=== PATIENT | male | born 1935 | race Caucasian/White ===

== ENCOUNTER 2016-05-17 17:39 | Inpatient (IN) | payer OTHER, MEDICARE ==
[~2016-05-17] VITALS: Ht 167.6 cm; Wt 64.8 kg
[~2016-05-17 17:39] MED LIST: ATOR20TA PO; PRIL20CA PO; TAB-TAB; TRIA1CAP OR
[2016-05-17 17:41] VITALS: BP 142/81; PULSE 85; RESP 18; TEMP 97.6; O2SAT 100
[2016-05-17] MEDS ORDERED: SODIUM CHLORIDE 0.9% FLUSH 5 ML FLUSH IVF PRN (18:00)
--- NOTE | 2016-05-17 18:15 | PD ---
HPI . Weakness and confusion Chief Complaint: General Weakness Time Seen by Provider: 17:55 Travel History International Travel<30 days: No Contact w/Intl Traveler<30days: No Traveled to known affect area: No History of Present Illness HPI History is provided by the patient's glthyeo-od-loh. The duhtbyn-nd-arv reports that both the patient and his are confused. The wkwgvwc-iy-pok has moved here to help take care of them. The jspzalh-ss-rkh states that the patient has a history of liver cancer and is undergoing experimental treatment in [place]. The patient has suffered increasing weakness and confusion over the last 3 or 4 days. There has been no reported fever. No known vomiting or diarrhea. No difficulty breathing. PFSH Past Medical History Cancer: No High Cholesterol: Yes Diabetes: No Endocrine: No Hiatal Hernia: No Hypertension: Yes Immune Disorder: No Musculoskeletal: No Neurologic: No Psychiatric: No Reproductive: No Respiratory: No Immunizations Current: Yes (FLU SHOT) Thyroid Disease: No Past Surgical History Abdominal Surgery: No AICD: No Cardiac Surgery: No Ear Surgery: No Endocrine Surgery: No Eye Surgery: Yes (BILATERAL CATARACTS AND IMPLANTS) Genitourinary Surgery: No Joint Replacement: No Oral Surgery: No Pacemaker: No Thoracic Surgery: No Social History Alcohol Use: Yes (2 DRINKS A DAY) Tobacco Use: No Substance Use: No Allergies-Medications (Allergen,Severity, Reaction): Coded Allergies: No Known Allergies (Verified , 03/18/14) Reported Meds & Prescriptions Reported Meds & Active Scripts Active Reported Atorvastatin 20 mg tab (Atorvastatin Calcium) 20 Mg Tab 20 Mg PO HS Triamterene/Hydrochloroth (Triamterene & Hydrochlorothiaz) 1 Cap Cap 1 Cap OR DAILY Prilosec 20 mg (Omeprazole) 20 Mg Capcr 20 Mg PO DAILY Multivitamin (Multivitamins) 1 Tab Tab Review of Systems ROS Limitations: Altered Mental Status Except as stated in HPI: all other systems reviewed are Neg General / Constitutional: No: Fever, Chills HENT: No: Headaches Cardiovascular: No: Chest Pain or Discomfort Respiratory: No: Shortness of Breath Gastrointestinal: No: Nausea, Vomiting, Diarrhea Neurologic: Positive: Weakness, Change in Mentation, No: Focal Abnormalities Physical Exam Narrative GENERAL: This is a thin, chronically ill-appearing man who is slow to respond to questions. SKIN: Warm and dry. The skin of the abdominal wall sags. HEAD: Atraumatic. Normocephalic. EYES: Pupils equal and round. He may have a little bit of scleral icterus. It is not very pronounced. ENT: No nasal bleeding or discharge. Mucous membranes pink and moist. NECK: Trachea midline. Neck is supple. CARDIOVASCULAR: Regular rate and rhythm. He is having frequent PACs and PVCs. RESPIRATORY: No accessory muscle use. Lungs sounded clear. GASTROINTESTINAL: Abdomen soft, non-tender, nondistended. Liver is markedly enlarged. It is palpable at least 4 fingerbreadths below the costal margin. The enlarged liver can actually be seen on inspection of his abdomen. MUSCULOSKELETAL: No obvious deformities. No edema. NEUROLOGICAL: Awake and alert. No obvious cranial nerve deficits. Motor grossly within normal limits. Speech is slowed. PSYCHIATRIC: Difficult to evaluate. Data Data Last Documented VS Vital Signs Date Time Temp Pulse Resp B/P Pulse Ox O2 Delivery O2 Flow Rate FiO2 05/17/16 19:26 77 20 164/81 100 Room Air 05/17/16 17:41 97.6 Orders Complete Blood Count With Diff (05/17/16 17:55) Comprehensive Metabolic Panel (05/17/16 17:55) Urinalysis - C+S If Indicated (05/17/16 17:55) Iv Access Insert/Monitor (05/17/16 17:55) Ecg Monitoring (05/17/16 17:55) Oximetry (05/17/16 17:55) Sodium Chloride 0.9% Flush (Ns Flush) (05/17/16 18:00) Cath For Specimen (05/17/16 17:55) Ammonia (05/17/16 17:58) Ct Brain W/O Iv Contrast(Rout) (05/17/16 18:16) Urinary Catheter Management SENG.Q8H (05/17/16 18:49) Sodium Chlor 0.9% 1000 Ml Inj (Ns 1000 M (05/17/16 19:30) Labs Laboratory Tests Test 05/17/16 05/17/16 18:00 19:05 White Blood Count 10.3 TH/MM3 Red Blood Count 5.24 MIL/MM3 Hemoglobin 15.7 GM/DL Hematocrit 48.5 % Mean Corpuscular Volume 92.5 FL Mean Corpuscular Hemoglobin 30.0 PG Mean Corpuscular Hemoglobin 32.4 % Concent Red Cell Distribution Width 14.3 % Platelet Count 130 TH/MM3 Mean Platelet Volume 11.7 FL Neutrophils (%) (Auto) % Lymphocytes (%) (Auto) % Monocytes (%) (Auto) % Eosinophils (%) (Auto) % Basophils (%) (Auto) % Neutrophils # (Auto) TH/MM3 Lymphocytes # (Auto) TH/MM3 Monocytes # (Auto) TH/MM3 Eosinophils # (Auto) TH/MM3 Basophils # (Auto) TH/MM3 CBC Comment AUTO DIFF Differential Total Cells 100 Counted Neutrophils % (Manual) 90 % Lymphocytes % 7 % Monocytes % 3 % Neutrophils # (Manual) 9.3 TH/MM3 Differential Comment FINAL DIFF MANUAL Platelet Estimate LOW Platelet Morphology Comment NORMAL Red Cell Morphology Comment NORMAL Sodium Level 142 MEQ/L Potassium Level 4.0 MEQ/L Chloride Level 103 MEQ/L Carbon Dioxide Level 28.0 MEQ/L Anion Gap 11 MEQ/L Blood Urea Nitrogen 37 MG/DL Creatinine 1.30 MG/DL Estimat Glomerular Filtration 53 ML/MIN Rate Random Glucose 90 MG/DL Calcium Level 12.6 MG/DL Protein Corrected Calcium 12.2 MG/DL Total Bilirubin 2.3 MG/DL Aspartate Amino Transf 181 U/L (AST/SGOT) Alanine Aminotransferase 49 U/L (ALT/SGPT) Alkaline Phosphatase 222 U/L Ammonia 26 MCMOL/L Total Protein 7.7 GM/DL Albumin 3.5 GM/DL Urine Collection Type CATH Urine Color PATRICK Urine Turbidity CLEAR Urine pH 5.5 Urine Specific [place] 1.027 Urine Protein TRACE mg/dL Urine Glucose (UA) NEG mg/dL Urine Ketones TRACE mg/dL Urine Occult Blood NEG Urine Nitrite NEG Urine Bilirubin MOD Urine Leukocyte Esterase NEG Urine WBC 0-2 /hpf Urine Squamous Epithelial 0-5 /hpf Cells Urine Amorphous Sediment LARGE Urine Hyaline Casts 15-19 /lpf Urine Fine Granular Casts 3-5 /lpf Urine Mucus MOD /lpf Microscopic Urinalysis Comment CATH-CULT NOT IND MDM Medical Decision Making Medical Screen Exam Complete: Yes Emergency Medical Condition: Yes Medical Record Reviewed: Yes (past medical history includes hypertension, hyperlipidemia, diastolic congestive heart failure, previous ITP and his current problems with his liver.) Interpretation(s) EKG shows an underlying sinus rhythm. He has multiple PVCs and PACs. He also has some artifact. Differential Diagnosis Differential diagnosis of altered mental status includes but is not limited to infection, electrolyte abnormality, neurological event, intoxication Narrative Course Patient is brought in by his maghfck-ai-qec for evaluation of increasing confusion. History is liver cancer. Last Impressions Head CT 05/17/161815 Signed Impressions: Service Date/Time: Tuesday, May 17, 2016 18:53 - CONCLUSION: Cerebral atrophy without acute intracranial abnormality. Giovanny Lima MD CBC & BMP Diagram 05/17/16 18:00 Calcium is 12.6. Total bilirubin is 2.3, AST 181, ALT 49, alkaline phosphatase 222. Ammonia is 26. Last Impressions Head CT 05/17/161815 Signed Impressions: Service Date/Time: Tuesday, May 17, 2016 18:53 - CONCLUSION: Cerebral atrophy without acute intracranial abnormality. Giovanny Lima MD UA is negative for infection. He does have bilirubin in his urine. Patient remains very confused. He was trying to crawl out of the bed. Physician Communication Physician Communication Dr. Adames will admit. Diagnosis Primary Impression: Confusion Additional Impressions: Weakness Acute prerenal azotemia Hypercalcemia Admitting Information Admitting Physician Requests: Observation Condition: Stable Alexandra Benito MD May 17, 2016 18:15
[2016-05-17 18:25] LABS: HEMATOCRIT 48.5 % (39.0-51.0); MEAN CELL VOLUME 92.5 FL (80.0-100.0); MEAN CORPUSCULAR HGB CONC 32.4 % (32.0-36.0); PLATELET COUNT 130 TH/MM3 (150-450); RED BLOOD COUNT 5.24 MIL/MM3 (4.50-5.90); RED CELL DISTRIBUTION WIDTH 14.3 % (11.6-17.2); WHITE BLOOD COUNT 10.3 TH/MM3 (4.0-11.0)
[2016-05-17 18:26] LABS: HEMO FLAGS AUTO DIFF
[2016-05-17 18:41] LABS: TOTAL BILIRUBIN ADULT 2.3 MG/DL (0.2-1.0)
[2016-05-17 18:56] LABS: CALCIUM-PROTEIN CORRECTED 12.2 MG/DL (8.5-10.1)
[2016-05-17 19:08] LABS: NEUTROPHIL # MANUAL DIFF 9.3 TH/MM3 (1.8-7.7); POLYS (SEG NEUTROPHILS) 90 % (16-70); WBC DIFF SAMPLE 100
[2016-05-17 19:09] LABS: PLATELET ESTIMATE SMEAR LOW (NORMAL); PLATELET MORPHOLOGY NORMAL (NORMAL); SCAN/DIFF FINAL DIFF MANUAL
--- NOTE | 2016-05-17 19:09 | RADHPO ---
EXAM DATE/TIME: 05/17/2016 18:53 [facility] COMPARISON: No previous studies available for comparison. INDICATIONS : Altered mental status. RADIATION DOSE: 62.63 CTDIvol (mGy) MEDICAL HISTORY : Hypertension. SURGICAL HISTORY : None. ENCOUNTER: Initial ACUITY: 1 day PAIN SCALE: 4/10 LOCATION: cranial TECHNIQUE: Multiple contiguous axial images were obtained of the head. Using automated exposure control and adj ustment of the mA and/or kV according to patient size, radiation dose was kept as low as reasonably a chievable to obtain optimal diagnostic quality images. FINDINGS: There is marked central and cortical atrophy with dilatation of ventricular and sulcal spaces. Minima l areas low-attenuation in the periventricular white matter. There is no parenchymal hemorrhage, acu te infarction or mass lesion identified. There are no extra-axial fluid collections appreciated. Th e posterior fossa is unremarkable with midline fourth ventricle. The portion of the orbits and paran rosmery sinuses visualized are unremarkable. CONCLUSION: Cerebral atrophy without acute intracranial abnormality. Giovanny Lima MD on May 17, 2016 at 19:07 Board Certified Radiologist. This report was verified electronically.
[2016-05-17 19:26] VITALS: BP 164/81; PULSE 77; RESP 20; O2SAT 100
[2016-05-17] MEDS ORDERED: SODIUM CHLOR 0.9% 1000 ML INJ 1,000 ML IV ONE (19:30)
[2016-05-17 19:46] LABS: BLOOD, URINE NEG (NEG); GLUCOSE,URINE NEG (NEG); KETONE, URINE TRACE mg/dL (NEG); NITRITE,URINE NEG (NEG); PH, URINE 5.5 (5.0-8.5)
[2016-05-17 20:14] LABS: HYALINE CAST, URINE 15-19 /lpf (RARE); METHOD OF COLLECTION CATH; URINE COLOR AMBER (YELLW/STRAW)
[2016-05-17 20:15] LABS: MUCUS URINE MOD /lpf (OCC); SQUAMOUS EPITHELIAL CELL URINE 0-5 /hpf (0-5)
[2016-05-17 20:16] LABS: COMMENT (UR) CATH-CULT NOT IND; CULTURE IF INDICATED CATH CULTURE NOT IND; WBC, URINE 0-2 /hpf (0-5)
[2016-05-17] MEDS: SODIUM CHLOR 0.9% 1000 ML INJ 1,000 ML IV SCH (20:31)
[2016-05-17] MEDS ORDERED: SODIUM CHLORIDE 0.9% FLUSH 5 ML FLUSH FLUSH PRN (20:45)
[2016-05-17] MEDS ORDERED: BISACODYL 10 MG SUPP PR PRN (20:45)
[2016-05-17] MEDS ORDERED: ONDANSETRON HCL 4 MG/2 ML VIAL IVP PRN (20:45)
[2016-05-17] MEDS ORDERED: ACETAMINOPHEN 325 MG TAB PO PRN (20:45)
[2016-05-17] MEDS: SODIUM CHLORIDE 0.9% FLUSH 5 ML FLUSH FLUSH SCH (21:00)
[2016-05-17 21:27] VITALS: BP 141/85
[2016-05-17 21:30] VITALS: BP 143/75; PULSE 80; RESP 18; TEMP 97.7; O2SAT 99
[2016-05-18] VITALS: BP 167/82; PULSE 69; RESP 18; TEMP 95.8; O2SAT 100
[2016-05-18] MEDS ORDERED: traMADol HCL 50 MG TAB PO PRN (01:00)
[2016-05-18] MEDS: SODIUM CHLOR 0.9% 1000 ML INJ 1,000 ML IV SCH ×4 (03:31→23:33)
[2016-05-18 04:00] VITALS: BP 137/68; PULSE 69; RESP 18; TEMP 97.2; O2SAT 100
[2016-05-18 06:47] LABS: AUTOMATED NEUTROPHIL # 5.3 TH/MM3 (1.8-7.7); BASOPHIL % 0.1 % (0.0-2.0); EOSINOPHIL % 0.4 % (0.0-4.0); HEMATOCRIT 38.3 % (39.0-51.0); LYMPH % 5.9 % (9.0-44.0); LYMPHOCYTE # 0.4 TH/MM3 (1.0-4.8); MEAN CELL VOLUME 91.7 FL (80.0-100.0); MEAN CORPUSCULAR HEMOGLOBIN 30.7 PG (27.0-34.0); MEAN CORPUSCULAR HGB CONC 33.5 % (32.0-36.0); MONO % 8.2 % (0.0-8.0); NEUT % 85.4 % (16.0-70.0); RED BLOOD COUNT 4.18 MIL/MM3 (4.50-5.90); RED CELL DISTRIBUTION WIDTH 14.1 % (11.6-17.2); WHITE BLOOD COUNT 6.2 TH/MM3 (4.0-11.0)
[2016-05-18 06:56] LABS: CHLORIDE 107 MEQ/L (98-107); POTASSIUM 4.2 MEQ/L (3.5-5.1); SODIUM (NA) 144 MEQ/L (136-145)
[2016-05-18 06:58] LABS: HEMO FLAGS AUTO DIFF; PLATELET COUNT 73 TH/MM3 (150-450)
[2016-05-18 07:12] LABS: ALKALINE PHOSPHATASE 159 U/L (45-117); ALT (GPT) 38 U/L (12-78); ANION GAP 10 MEQ/L (5-15); AST (GOT) 136 U/L (15-37); BICARBONATE 27.3 MEQ/L (21.0-32.0); BLOOD UREA NITROGEN 39 MG/DL (7-18); GLOMERULAR FILTRATION RATE 72 ML/MIN (>89); TOTAL BILIRUBIN ADULT 1.7 MG/DL (0.2-1.0)
[2016-05-18 07:20] LABS: PLATELET ESTIMATE SMEAR LOW (NORMAL); PLATELET MORPHOLOGY NORMAL (NORMAL)
[2016-05-18 07:21] LABS: SCAN/DIFF AUTO DIFF CONFIRMED
[2016-05-18 08:00] VITALS: BP 154/73; PULSE 62; RESP 16; TEMP 97.3; O2SAT 99
[2016-05-18] MEDS: SODIUM CHLORIDE 0.9% FLUSH 5 ML FLUSH FLUSH SCH ×2 (08:22→21:54)
[2016-05-18 12:00] VITALS: BP 141/80; PULSE 67; RESP 19; TEMP 97.7; O2SAT 98
--- NOTE | 2016-05-18 12:26 | EKG ---
Date Performed: 05/17/2016 Time Performed: 17:56:22 PTAGE: 81 years EKG: Sinus rhythm with frequent multifocal PVCs Leftward axis Incomplete RBBB Lateral ST-T changes are nonspecific Non specific ST segment changes Compared to the previous tracing there is no significant change Abnormal ECG PREVIOUS TRACING :05/23/09 DOCTOR: Bebeto Benton Interpretating Date/Time 05/18/2016 12:25:29
--- NOTE | 2016-05-18 15:40 | HHI.HP ---
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 Patient apparently had been sleeping too much at home and family was more confused with her brought to the hospital. Here the patient has had normal vital signs and oxygenation but appears dehydrated clinically with dry mucous membranes and decreased skin turgor. He notes no nausea or vomiting but has had some abdominal discomfort which she reports has been persistent since his cancer therapy had started. He notes no diarrhea or vomiting and no constipation. Normally is very active but the family says he was not very active and also prompted his visit to the hospital. I did speak with the patient's primary care physician who updated his medical history as well as his medication list. Patient has been on a diuretic and and statin despite his chronic elevated liver functions. Apparently in the emergency room the patient is confused and trying to crawl out of bed. His ammonia level was within normal limits and his CT of the brain was unremarkable on my review. Patient has been sleeping quite a bit here however when he is aroused she is alert and orientated 2. Patient was recommended for further evaluation and treatment due to probable dehydration and metabolic encephalopathy. Review of Systems Constitutional: DENIES: Diaphoretic episodes, Fatigue, Fever, Weight gain, Weight loss, Chills, Dizziness, Change in appetite, Night Sweats Endocrine: DENIES: Heat/cold intolerance, Polydipsia, Polyuria, Polyphagia Eyes: DENIES: Blurred vision, Diplopia, Eye inflammation, Eye pain, Vision loss , Photosensitivity, Double Vision Ears, nose, mouth, throat: DENIES: Tinnitus, Hearing loss, Vertigo, Nasal discharge, Oral lesions, Throat pain, Hoarseness, Ear Pain, Running Nose, Epistaxis, Sinus Pain, Toothache, Odynophagia Respiratory: DENIES: Apneas, Cough, Snoring, Wheezing, Hemoptysis, Sputum production, Shortness of breath Cardiovascular: DENIES: Chest pain, Palpitations, Syncope, Dyspnea on Exertion , PND, Lower Extremity Edema, Orthopnea, Claudication Gastrointestinal: COMPLAINS OF: Abdominal pain, DENIES: Black stools, Bloody stools, Constipation, Diarrhea, Nausea, Vomiting, Difficulty Swallowing, Anorexia Genitourinary: DENIES: Sexual dysfunction, Urinary frequency, Urinary incontinence, Urgency, Hematuria, Dysuria, Nocturia, Penile Discharge, Testicular Pain, Testicular Swelling Musculoskeletal: DENIES: Joint pain, Muscle aches, Stiffness, Joint Swelling, Back pain, Neck pain Integumentary: DENIES: Abnormal pigmentation, Nail changes, Pruritus, Rash Hematologic/lymphatic: DENIES: Bruising, Lymphadenopathy Immunologic/allergic: DENIES: Eczema, Urticaria Neurologic: DENIES: Abnormal gait, Headache, Localized weakness, Paresthesias, Seizures, Speech Problems, Tremor, Poor Balance Psychiatric: DENIES: Anxiety, Confusion, Mood changes, Depression, Hallucinations, Agitation, Suicidal Ideation, Homicidal Ideation, Delusions Past Family Social History Past Medical History Hepatic sarcoma, hepatosplenomegaly, 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 5 daily, Prilosec 20 mg daily, Mag-Ox 400 mg every other day, Toprol 25 mg day Allergies: Coded Allergies: No Known Allergies (Verified , 03/18/14) Active Ordered Medications Reviewed in the medical record Family History Unknown to patient at this time Social History Lives with his , no tobacco or alcohol dependency issues currently although he has a history of alcohol dependency and abuse Physical Exam Vital Signs Vital Signs Date Time Temp Pulse Resp B/P Pulse Ox O2 Delivery O2 Flow Rate FiO2 05/18/16 12:00 97.7 67 19 141/80 98 05/18/16 08:00 97.3 62 16 154/73 99 05/18/16 04:00 97.2 69 18 137/68 100 05/18/16 02:24 20 05/18/16 00:00 95.8 69 18 167/82 100 05/17/16 21:30 97.7 80 18 143/75 99 05/17/16 21:27 80 20 141/85 98 05/17/16 19:26 77 20 164/81 100 Room Air 05/17/16 19:26 77 20 164/81 100 Room Air 05/17/16 19:00 20 97 05/17/16 17:50 85 16 100 05/17/16 17:41 97.6 85 18 142/81 100 Physical Exam GENERAL: This is a frail, elderly, well-developed patient, in no apparent distress. SKIN: No rashes, ecchymoses or lesions. Cool and dry. HEAD: Atraumatic. Normocephalic. No temporal or scalp tenderness. EYES: Pupils equal round and reactive. Extraocular motions intact. No scleral icterus. No injection or drainage. ENT: Nose without bleeding, purulent drainage or septal hematoma. Throat without erythema, tonsillar hypertrophy or exudate. Uvula midline. Airway patent. NECK: Trachea midline. No JVD or lymphadenopathy. Supple, nontender, no meningeal signs. CARDIOVASCULAR: Regular rate and rhythm without murmurs, gallops, or rubs. RESPIRATORY: Clear to auscultation. Breath sounds equal bilaterally. No wheezes , rales, or rhonchi. GASTROINTESTINAL: Abdomen soft, non-tender, nondistended.there is hepato- splenomegaly, but no palpable masses. No guarding. MUSCULOSKELETAL: Extremities without clubbing, cyanosis, or edema. No joint tenderness, effusion, or edema noted. No calf tenderness. Negative Homans sign bilaterally. NEUROLOGICAL: Awake and alert. Cranial nerves II through XII intact. Motor and sensory grossly within normal limits. Five out of 5 muscle strength in all muscle groups. Normal speech. Laboratory Laboratory Tests Test 05/17/16 05/17/16 05/18/16 18:00 19:05 05:45 White Blood Count 10.3 6.2 Red Blood Count 5.24 4.18 Hemoglobin 15.7 12.8 Hematocrit 48.5 38.3 Mean Corpuscular Volume 92.5 91.7 Mean Corpuscular Hemoglobin 30.0 30.7 Mean Corpuscular Hemoglobin 32.4 33.5 Concent Red Cell Distribution Width 14.3 14.1 Platelet Count 130 73 Mean Platelet Volume 11.7 12.5 Neutrophils (%) (Auto) 85.4 Lymphocytes (%) (Auto) 5.9 Monocytes (%) (Auto) 8.2 Eosinophils (%) (Auto) 0.4 Basophils (%) (Auto) 0.1 Neutrophils # (Auto) 5.3 Lymphocytes # (Auto) 0.4 Monocytes # (Auto) 0.5 Eosinophils # (Auto) 0.0 Basophils # (Auto) 0.0 CBC Comment AUTO DIFF AUTO DIFF Differential Total Cells 100 Counted Neutrophils % (Manual) 90 Lymphocytes % 7 Monocytes % 3 Neutrophils # (Manual) 9.3 Differential Comment FINAL DIFF AUTO DIFF MANUAL CONFIRMED Platelet Estimate LOW LOW Platelet Morphology Comment NORMAL NORMAL Red Cell Morphology Comment NORMAL Sodium Level 142 144 Potassium Level 4.0 4.2 Chloride Level 103 107 Carbon Dioxide Level 28.0 27.3 Anion Gap 11 10 Blood Urea Nitrogen 37 39 Creatinine 1.30 1.00 Estimat Glomerular Filtration 53 72 Rate Random Glucose 90 83 Calcium Level 12.6 11.3 Protein Corrected Calcium 12.2 Total Bilirubin 2.3 1.7 Aspartate Amino Transf 181 136 (AST/SGOT) Alanine Aminotransferase 49 38 (ALT/SGPT) Alkaline Phosphatase 222 159 Ammonia 26 Total Protein 7.7 5.6 Albumin 3.5 2.6 Urine Collection Type CATH Urine Color PATRICK Urine Turbidity CLEAR Urine pH 5.5 Urine Specific [place] 1.027 Urine Protein TRACE Urine Glucose (UA) NEG Urine Ketones TRACE Urine Occult Blood NEG Urine Nitrite NEG Urine Bilirubin MOD Urine Leukocyte Esterase NEG Urine WBC 0-2 Urine Squamous Epithelial 0-5 Cells Urine Amorphous Sediment LARGE Urine Hyaline Casts 15-19 Urine Fine Granular Casts 3-5 Urine Mucus MOD Microscopic Urinalysis Comment CATH-CULT NOT IND Result Diagram: 05/18/1645 05/18/1645 Imaging Last Impressions Head CT 05/17/161815 Signed Impressions: Service Date/Time: Tuesday, May 17, 2016 18:53 - CONCLUSION: Cerebral atrophy without acute intracranial abnormality. Giovanny Lima MD Assessment and Plan Problem List: (1) Weakness ICD Code: R53.1 Status: Acute Plan: Patient is likely dehydrated. Continue with IV hydration, hold diuretic Continue with encouraging oral intake pt/ot eval (2) Hypercalcemia ICD Code: E83.52 Status: Acute Plan: Continue IV hydration, may require Lasix however numbers do seem to be correcting themselves. We'll repeat them later today (3) LFT elevation ICD Code: R94.5 Status: Acute Plan: hold simvastatin Hx of hepatic sarcoma, treated at [place] (4) MDS (myelodysplastic syndrome) ICD Code: D46.9 Status: Acute Plan: Patient has chronic refractory anemia and thrombocytopenia (5) CKD (chronic kidney disease) stage 2, GFR 60-89 ml/min ICD Code: N18.2 Status: Acute Plan: Patient's chronic kidney disease and appears to be at baseline at this time. Continue to follow with hydration (6) Metabolic encephalopathy ICD Code: G93.41 Status: Acute Plan: likley due to dehydration will reasses after adequate hydration ct head, ammonia unremarkable Assessment and Plan Plan of care to be determined by Hospital course Code Status full code Discussed Condition With Case discussed with hernandez Rodriguez, case management, Sveta MCMAHAN and Dr. Cuello's office Wendi Boogie MD May 18, 2016 15:40
[2016-05-18] MEDS ORDERED: METOPROLOL SUCCINATE 25 MG EXTENDED RELEASE TAB PO ONE (15:45)
[2016-05-18 16:00] VITALS: BP 146/78; PULSE 71; RESP 18; TEMP 98; O2SAT 97
[2016-05-18 16:15] LABS: CHLORIDE 110 MEQ/L (98-107); POTASSIUM 4.1 MEQ/L (3.5-5.1); SODIUM (NA) 145 MEQ/L (136-145)
[2016-05-18 16:19] LABS: ANION GAP 6 MEQ/L (5-15); BICARBONATE 28.7 MEQ/L (21.0-32.0); BLOOD UREA NITROGEN 36 MG/DL (7-18)
[2016-05-18 16:22] LABS: ALT (GPT) 37 U/L (12-78); AST (GOT) 131 U/L (15-37); GLOMERULAR FILTRATION RATE 75 ML/MIN (>89)
[2016-05-18 16:23] LABS: TOTAL BILIRUBIN ADULT 1.5 MG/DL (0.2-1.0)
[2016-05-18 16:24] LABS: ALKALINE PHOSPHATASE 152 U/L (45-117)
[2016-05-18] MEDS ORDERED: MULTTAB67 PO (17:43)
[2016-05-18] MEDS ORDERED: OMEP20TA PO (17:43)
[2016-05-18] MEDS ORDERED: MAGN400T2 PO (17:44)
[2016-05-18] MEDS ORDERED: TRIA37.53 PO (17:44)
[2016-05-18] MEDS ORDERED: ATOR20TA15 PO (17:44)
[2016-05-18] MEDS: traMADol HCL 50 MG TAB PO PRN (18:45)
[2016-05-18] MEDS: MULTIVITAMIN TAB PO SCH (18:45)
[2016-05-18 20:00] VITALS: BP 110/62; PULSE 57; RESP 18; TEMP 96; O2SAT 97
[2016-05-19] VITALS: BP 129/63; PULSE 58; RESP 16; TEMP 96; O2SAT 96
[2016-05-19] MEDS: SODIUM CHLOR 0.9% 1000 ML INJ 1,000 ML IV SCH (05:59)
[2016-05-19 06:00] LABS: AUTOMATED NEUTROPHIL # 4.6 TH/MM3 (1.8-7.7); BASOPHIL % 0.4 % (0.0-2.0); EOSINOPHIL % 0.6 % (0.0-4.0); HEMATOCRIT 38.3 % (39.0-51.0); LYMPHOCYTE # 0.3 TH/MM3 (1.0-4.8); MEAN CORPUSCULAR HEMOGLOBIN 30.1 PG (27.0-34.0); MEAN CORPUSCULAR HGB CONC 32.3 % (32.0-36.0); PLATELET COUNT 76 TH/MM3 (150-450); RED BLOOD COUNT 4.12 MIL/MM3 (4.50-5.90); RED CELL DISTRIBUTION WIDTH 14.6 % (11.6-17.2); WHITE BLOOD COUNT 5.3 TH/MM3 (4.0-11.0)
[2016-05-19 06:05] LABS: CHLORIDE 112 MEQ/L (98-107); POTASSIUM 3.9 MEQ/L (3.5-5.1); SODIUM (NA) 147 MEQ/L (136-145)
[2016-05-19 06:08] LABS: HEMO FLAGS AUTO DIFF
[2016-05-19 06:13] LABS: ANION GAP 8 MEQ/L (5-15); BLOOD UREA NITROGEN 32 MG/DL (7-18)
[2016-05-19 06:16] LABS: ALT (GPT) 35 U/L (12-78); AST (GOT) 127 U/L (15-37)
[2016-05-19 06:17] LABS: GLOMERULAR FILTRATION RATE 106 ML/MIN (>89)
[2016-05-19 06:18] LABS: TOTAL BILIRUBIN ADULT 1.4 MG/DL (0.2-1.0)
[2016-05-19 06:19] LABS: ALKALINE PHOSPHATASE 152 U/L (45-117)
[2016-05-19 07:20] LABS: SCAN/DIFF AUTO DIFF CONFIRMED
[2016-05-19 08:00] VITALS: BP 142/71; PULSE 58; RESP 18; TEMP 97.5; O2SAT 95
[2016-05-19] MEDS: PANTOPRAZOLE SOD 20 MG DELAYED RELEASE TAB PO SCH (08:37)
[2016-05-19] MEDS: MULTIVITAMIN TAB PO SCH (08:37)
[2016-05-19] MEDS: METOPROLOL SUCCINATE 25 MG EXTENDED RELEASE TAB PO SCH (08:38)
[2016-05-19] MEDS: SODIUM CHLORIDE 0.9% FLUSH 5 ML FLUSH FLUSH SCH ×2 (08:38→21:46)
[2016-05-19 12:00] VITALS: BP 138/79; PULSE 62; RESP 19; TEMP 97.8; O2SAT 95
[2016-05-19] MEDS ORDERED: GADODIAMIDE PF 287 MG/ML 5 ML VIAL (for RAD MRI) IV ONE (13:22)
--- NOTE | 2016-05-19 13:22 | HHI.PR ---
Subjective Remarks Patient seen and evaluated in follow-up for encephalopathy. He is rehydrated, lunch lites are improved. Family at the bedside today. Discharge planning discussed with family. MRI pending Objective Vitals Vital Signs Date Time Temp Pulse Resp B/P Pulse Ox O2 Delivery O2 Flow Rate FiO2 05/19/16 08:00 97.5 58 18 142/71 95 05/19/16 00:00 96.0 58 16 129/63 96 05/18/16 20:00 96.0 57 18 110/62 97 05/18/16 16:00 98.0 71 18 146/78 97 I/O 05/18/16 05/18/16 05/18/16 05/19/16 05/19/16 05/19/16 07:00 15:00 23:00 07:00 15:00 23:00 Intake Total 1050 ml 3083 ml 400 ml 240 ml Output Total 200 ml 880 ml 450 ml Balance 850 ml 2203 ml -50 ml 240 ml Intake Oral 420 ml 400 ml 240 ml IV Total 1050 ml 2663 ml Output Urine Total 200 ml 880 ml 450 ml # Bowel Movements 0 0 Result Diagram: 05/19/16 0520 05/19/16 0520 Imaging Last Impressions Head CT 05/17/166 Signed Impressions: Service Date/Time: Tuesday, May 17, 2016 18:53 - CONCLUSION: Cerebral atrophy without acute intracranial abnormality. Giovanny Lima MD Objective Remarks GENERAL: This is a well-nourished, well-developed patient, in no apparent distress. CARDIOVASCULAR: Regular rate and rhythm without murmurs, gallops, or rubs. RESPIRATORY: Clear to auscultation. Breath sounds equal bilaterally. No wheezes , rales, or rhonchi. GASTROINTESTINAL: Abdomen soft, non-tender, nondistended. Normal active bowel sounds MUSCULOSKELETAL: Extremities without clubbing, cyanosis, or edema. NEURO: Alert & Oriented to person, weak confused A/P Problem List: (1) Weakness ICD Code: R53.1 Status: Acute Plan: better hydrated Continue with po intake, hold diuretic pt/ot eval (2) Hypercalcemia ICD Code: E83.52 Status: Acute Plan: corrected (3) LFT elevation ICD Code: R94.5 Status: Acute Plan: lft's better Hx of hepatic sarcoma, treated at [facility] (4) MDS (myelodysplastic syndrome) ICD Code: D46.9 Status: Acute Plan: Patient has chronic refractory anemia and thrombocytopenia (5) CKD (chronic kidney disease) stage 2, GFR 60-89 ml/min ICD Code: N18.2 Status: Acute Plan: Patient's chronic kidney disease and appears to be at baseline at this time. Continue to follow with hydration (6) Metabolic encephalopathy ICD Code: G93.41 Status: Acute Plan: likely due to dehydration better but still not at baseline MRI pending ct head, ammonia nl eeg Discharge Planning [facility] Wendi Singh MD May 19, 2016 13:22
--- NOTE | 2016-05-19 13:35 | RADHPO ---
EXAM DATE/TIME: 05/19/2016 12:41 [facility] COMPARISON: MRI BRAIN W & W/O CONTRAST, May 24, 2009, 7:51. INDICATIONS : Altered mental status. CONTRAST: 13 cc Omniscan (gadodiamide) IV MEDICAL HISTORY : Hypertension. Hypercholesterolemia. Liver ca with mets. SURGICAL HISTORY : Liver bx. ENCOUNTER: Initial ACUITY: 2 day PAIN SCORE: 2/10 LOCATION: head TECHNIQUE: Multiplanar, multisequence MRI of the brain was performed both prior to and following the administrat ion of paramagnetic contrast. FINDINGS: CEREBRUM: The ventricles are normal for age. No evidence of midline shift, mass lesion, hemorrhage or acute in farction. No extraaxial fluid collections are seen. The pituitary gland and suprasellar cistern are normal in configuration. WHITE MATTER: No significant signal abnormalities are seen in the white matter. POSTERIOR FOSSA: There is a 1.9 x 1.7 cm schwannoma both intra-and extra canalicular. It is peripheral enhancing with some central areas of non-enhancement. It is larger than in 2010 . The cerebellum and brainstem are intact. The 4th ventricle is midline. The cerebellar tonsils are normal in position. DIFFUSION IMAGING: No focal areas of restricted diffusion are seen. No evidence of acute infarction. EXTRACRANIAL: The visualized portions of the orbits and paranasal sinuses are unremarkable. POST-CONTRAST: No abnormal areas of parenchymal or dural enhancement. No evidence of blood-brain barrier breakdown. CONCLUSION: There is a 1.9 x 1.7 cm schwannoma both intra-and extra canalicular. It is peripheral enhancing with some central areas of non-enhancement. It is larger than in 2010. Bruno James MD on May 19, 2016 at 13:31 Board Certified Radiologist. This report was verified electronically.
[2016-05-19 16:00] VITALS: BP 128/80; PULSE 71; RESP 18; TEMP 97.7; O2SAT 97
[2016-05-19] MEDS: traMADol HCL 50 MG TAB PO PRN (17:28)
[2016-05-19 20:00] VITALS: BP 146/63; PULSE 59; RESP 20; TEMP 98.8; O2SAT 99
[2016-05-20] VITALS: BP 150/69; PULSE 58; RESP 20; TEMP 97.9; O2SAT 98
[2016-05-20 05:54] LABS: CHLORIDE 112 MEQ/L (98-107); POTASSIUM 3.7 MEQ/L (3.5-5.1); SODIUM (NA) 147 MEQ/L (136-145)
[2016-05-20 05:59] LABS: ANION GAP 9 MEQ/L (5-15); BICARBONATE 26.5 MEQ/L (21.0-32.0); BLOOD UREA NITROGEN 30 MG/DL (7-18)
[2016-05-20 06:02] LABS: ALT (GPT) 40 U/L (12-78); AST (GOT) 132 U/L (15-37); GLOMERULAR FILTRATION RATE 89 ML/MIN (>89)
[2016-05-20 06:04] LABS: TOTAL BILIRUBIN ADULT 1.4 MG/DL (0.2-1.0)
[2016-05-20 06:05] LABS: ALKALINE PHOSPHATASE 161 U/L (45-117)
[2016-05-20 08:00] VITALS: BP 135/62; PULSE 62; RESP 18; TEMP 97.2; O2SAT 95
[2016-05-20] MEDS ORDERED: TRIAMTERENE/HCTZ 37.5 MG/25 MG CAP PO SCH (09:00)
[2016-05-20] MEDS: PANTOPRAZOLE SOD 20 MG DELAYED RELEASE TAB PO SCH (09:54)
[2016-05-20] MEDS: MULTIVITAMIN TAB PO SCH (09:54)
[2016-05-20] MEDS: METOPROLOL SUCCINATE 25 MG EXTENDED RELEASE TAB PO SCH (09:54)
[2016-05-20] MEDS: SODIUM CHLORIDE 0.9% FLUSH 5 ML FLUSH FLUSH SCH ×2 (09:58→22:52)
[2016-05-20] MEDS: DEXT 5%-NACL 0.45% 1000 ML INJ 1,000 ML IV SCH ×2 (10:01→22:53)
[2016-05-20 12:00] VITALS: BP 130/61; PULSE 55; RESP 18; TEMP 97.4; O2SAT 97
[2016-05-20] MEDS ORDERED: FUROSEMIDE 40 MG/4 ML VIAL IV PUSH ONE (13:00)
--- NOTE | 2016-05-20 13:02 | HHI.PR ---
Subjective Remarks Patient seen today in follow-up for what appears to be a sudden onset of metabolic encephalopathy in a patient who is normally highly functioning without history of dementia. Still quite slow of thought and use. Calcium levels increased today. Patient appears adequately hydrated. Awaiting EEG and neuro consult Objective Vitals Vital Signs Date Time Temp Pulse Resp B/P Pulse Ox O2 Delivery O2 Flow Rate FiO2 05/20/16 12:00 97.4 55 18 130/61 97 05/20/16 08:00 97.2 62 18 135/62 95 05/20/16 00:00 97.9 58 20 150/69 98 05/19/16 20:00 98.8 59 20 146/63 99 05/19/16 16:00 97.7 71 18 128/80 97 I/O 05/19/16 05/19/16 05/19/16 05/20/16 05/20/16 05/20/16 07:00 15:00 23:00 07:00 15:00 23:00 Intake Total 400 ml 240 ml 60 ml 60 ml Output Total 450 ml 400 ml 375 ml 150 ml Balance -50 ml -160 ml -315 ml -90 ml Intake Oral 400 ml 240 ml 60 ml 60 ml IV Total 0 ml 0 ml Output Urine Total 450 ml 400 ml 375 ml 150 ml # Bowel Movements 0 0 0 Result Diagram: 05/19/16 0520 05/20/16 0523 Objective Remarks GENERAL: This is a well-nourished, well-developed patient, in no apparent distress. CARDIOVASCULAR: Regular rate and rhythm without murmurs, gallops, or rubs. RESPIRATORY: Clear to auscultation. Breath sounds equal bilaterally. No wheezes , rales, or rhonchi. GASTROINTESTINAL: Abdomen soft, non-tender, nondistended. Normal active bowel sounds MUSCULOSKELETAL: Extremities without clubbing, cyanosis, or edema. NEURO: Alert & Oriented to person, weak confused A/P Problem List: (1) Weakness ICD Code: R53.1 Status: Acute Plan: better hydrated Continue with po intake, hold diuretic pt/ot eval appreciated (2) Hypercalcemia ICD Code: E83.52 Status: Acute Plan: PTH pending add lasix d/c hctz (3) LFT elevation ICD Code: R94.5 Status: Acute Plan: lft's better Hx of hepatic sarcoma, treated at [facility] (4) MDS (myelodysplastic syndrome) ICD Code: D46.9 Status: Acute Plan: Patient has chronic refractory anemia and thrombocytopenia stable without signs of bleeding (5) CKD (chronic kidney disease) stage 2, GFR 60-89 ml/min ICD Code: N18.2 Status: Acute Plan: Patient's chronic kidney disease and appears to be at baseline at this time. resolved with hydration (6) Metabolic encephalopathy ICD Code: G93.41 Status: Acute Plan: likely due to dehydration better but still not at baseline MRI shows ols schwannoma ammonia nl eeg pending Discharge Planning snf arranged for /dc when stable Wendi Boogie MD May 20, 2016 13:02
[2016-05-20 16:00] VITALS: BP 120/80; PULSE 62; RESP 18; TEMP 98.2; O2SAT 96
[2016-05-20 16:52] LABS: AMPHETAMINE, URINE NEG (NEG)
[2016-05-20 16:53] LABS: BARBITURATES, URINE NEG (NEG)
[2016-05-20 16:57] LABS: COCAINE, URINE NEG (NEG)
--- NOTE | 2016-05-20 17:18 | MG ---
cc: MARISOL DE ANDA M.D. Lab No: [id number] Date: 05/20/16 Age: Sex: M Race: TECHNIQUE 17 channel EEG. DESCRIPTION The background rhythm initially shows mild slowing in the theta range at roughly 6 Hz. Some muscle artifact is identified. The amplitude is roughly 20 microvolts. The patient described as being drowsy. There are sleep spindles present. No epileptiform features are seen. No lateralizing features are seen. Hyperventilation was not done. Photic results in a poor driving response. INTERPRETATION This appears to be a normal drowsy and sleep EEG. MD PREM Vargas/ANETTE /4:49 PM /5:14 PM
[2016-05-20 20:01] VITALS: BP 133/70; PULSE 56; RESP 21; TEMP 98.6; O2SAT 98
[2016-05-21] VITALS: BP 122/74; PULSE 57; RESP 20; TEMP 97.2; O2SAT 100
[2016-05-21 06:17] LABS: CHLORIDE 106 MEQ/L (98-107); POTASSIUM 3.4 MEQ/L (3.5-5.1); SODIUM (NA) 143 MEQ/L (136-145)
[2016-05-21 06:21] LABS: ANION GAP 8 MEQ/L (5-15); BLOOD UREA NITROGEN 28 MG/DL (7-18)
[2016-05-21 06:24] LABS: ALT (GPT) 43 U/L (12-78); AST (GOT) 136 U/L (15-37); GLOMERULAR FILTRATION RATE 81 ML/MIN (>89)
[2016-05-21 06:25] LABS: TOTAL BILIRUBIN ADULT 1.5 MG/DL (0.2-1.0)
[2016-05-21 06:27] LABS: ALKALINE PHOSPHATASE 176 U/L (45-117)
[2016-05-21 08:00] VITALS: BP 116/50; PULSE 69; RESP 20; TEMP 97.6; O2SAT 95
--- NOTE | 2016-05-21 08:50 | PD.CONS ---
History of Present Illness Service Neurology Consult Requested By medical Reason for Consult confusion Primary Care Physician Deepak Cuello MD History of Present Illness 81-year-old gentleman with a history of hepatic sarcoma who has been undergoing treatment at the [facility] for his malignancy. pt is poor historian. apparently has not been doing as well since receiving therapy at [facility]. he denies any duque/neck pain/focal weakness. states he will use a cane to walk around with. mri brain -no acute lesion eeg- nml no fever. wbc normal count. nh3 nml. 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 5 daily, Prilosec 20 mg daily, Mag-Ox 400 mg every other day, Toprol 25 mg day Allergies: Coded Allergies: No Known Allergies (Verified , 03/18/14) Active Ordered Medications Reviewed in the medical record Family History Unknown to patient at this time Social History Lives with his , no tobacco or alcohol use at present Review of Systems All other ROS: ROS reviewed as documented in chart Past Family Social History Allergies: Coded Allergies: No Known Allergies (Verified , 03/18/14) Active Ordered Medications Current Medications Medications (Trade) Dose Ordered Sig/Mitzy Route Start Time Stop Time Status Last Admin (NS Flush) 2 ml UNSCH PRN FLUSH 05/17/16 20:45 (NS Flush) 2 ml BID FLUSH 05/17/16 21:00 05/20/16 22:52 (Zofran Inj) 4 mg Q6H PRN IVP 05/17/16 20:45 (Dulcolax Supp) 10 mg DAILY PRN VT 05/17/16 20:45 (Tylenol) 650 mg Q6H PRN PO 05/17/16 20:45 (Ultram) 50 mg Q4H PRN PO 05/18/16 01:00 05/19/16 17:28 (Ultram) 100 mg Q4H PRN PO 05/18/16 01:00 05/18/16 00:57 (Toprol Xl) 25 mg DAILY PO 05/19/16 09:00 05/20/16 09:54 (Theragran) 1 tab DAILY PO 05/18/16 19:00 05/20/16 09:54 Pantoprazole Sodium 20 mg 20 mg DAILY PO 05/19/16 09:00 05/20/16 09:54 (D5W-03/23 NS 1000 ml Inj) 1,000 ml @ 84 mls/hr [id number] IV 05/20/16 09:00 05/20/16 22:53 (Pneumovax-23 Inj) 25 mcg ONCE ONCE IM 05/21/16 10:00 05/21/16 10:01 Exam I&O / VS 05/20/16 05/20/16 05/21/16 14:59 22:59 06:59 Intake Total 452 ml 388 ml 726 ml Output Total 1750 ml 800 ml Balance -1298 ml -412 ml 726 ml Intake Oral 450 ml 240 ml 240 ml IV Total 2 ml 148 ml 486 ml Output Urine Total 1750 ml 800 ml # Voids 2 # Bowel Movements 0 2 0 Vital Signs Date Time Temp Pulse Resp B/P Pulse Ox O2 Delivery O2 Flow Rate FiO2 05/21/16 08:00 97.6 69 20 116/50 95 05/21/16 00:00 97.2 57 20 122/74 100 05/20/16 20:01 98.6 56 21 133/70 98 05/20/16 16:00 98.2 62 18 120/80 96 05/20/16 12:00 97.4 55 18 130/61 97 General: No acute distress Neurologic: Alert Psychiatric: Cooperative Exam Comments alert, slow to answer and speak, bradyphrenic, pcpc: [place], able to name objects. follows. eomi, vff grossly full. ou 3mm sluggish, os- surgical cataract extraction changes, face sym, taylor to gravity but appears to have generalized weakness, msr trace, no clonus, planter flexor response, Review/Management Diagnosis/Plan: (1) Metabolic encephalopathy Plan: possibly side effect to onc medication/tx vs hypercalcemia and reduced appetite with secondary dehydration no significant lab or imaging abnormalities noted may be developing concomitant dementia. also, with mild parkinsonism on exam recs will need f/u with [facility] to further evaluate hypercalcemia w/u per medical we can check csf studies to complete w/u but suspect low yield p.t. careful using tramadol- can cause sz's probable rehab serial outpatient neuro exams (2) LFT elevation (3) Acute prerenal azotemia (4) Hypercalcemia Seng Bustamante MD May 21, 2016 08:50
[2016-05-21] MEDS: METOPROLOL SUCCINATE 25 MG EXTENDED RELEASE TAB PO SCH (09:00)
[2016-05-21] MEDS: SODIUM CHLORIDE 0.9% FLUSH 5 ML FLUSH FLUSH SCH ×2 (09:00→20:36)
[2016-05-21] MEDS: DEXT 5%-NACL 0.45% 1000 ML INJ 1,000 ML IV SCH (09:06)
[2016-05-21] MEDS: MULTIVITAMIN TAB PO SCH (09:08)
[2016-05-21] MEDS: PANTOPRAZOLE SOD 20 MG DELAYED RELEASE TAB PO SCH (09:08)
[2016-05-21] MEDS ORDERED: PNEUMOCOCCAL POLYVALENT INJ 25 MCG/0.5 ML SYR IM ONE (10:00)
[2016-05-21 10:42] LABS: MEAN CELL VOLUME 92.6 FL (80.0-100.0); MEAN CORPUSCULAR HGB CONC 34.6 % (32.0-36.0); PLATELET COUNT 92 TH/MM3 (150-450); RED BLOOD COUNT 4.21 MIL/MM3 (4.50-5.90); RED CELL DISTRIBUTION WIDTH 14.1 % (11.6-17.2); WHITE BLOOD COUNT 8.4 TH/MM3 (4.0-11.0)
[2016-05-21 10:44] LABS: APTT (PATIENT) 27.8 SEC (24.3-30.1); INTERNATIONAL NORMALIZED RATIO 1.4 RATIO; PROTHROMBIN TIME - PATIENT 15.4 SEC (9.8-11.6)
[2016-05-21 10:57] LABS: REVIEW FLAG FINAL
[2016-05-21] MEDS ORDERED: METO25TA6 PO (11:08)
[2016-05-21] MEDS ORDERED: NIFE1TAB85 PO (11:08)
[2016-05-21] MEDS ORDERED: ACET325T PO (11:08)
--- NOTE | 2016-05-21 11:13 | HHI.DS ---
Discharge Summary Admission Date May 19, 2016 at 11:58 Discharge Date: May 21, 2016 Admitting Diagnosis confusion, hypercalcemia, prerenal azotemia (1) Metabolic encephalopathy ICD Code: G93.41 Diagnosis: Principal (2) Weakness ICD Code: R53.1 (3) Hypercalcemia ICD Code: E83.52 (4) LFT elevation ICD Code: R94.5 (5) MDS (myelodysplastic syndrome) ICD Code: D46.9 (6) CKD (chronic kidney disease) stage 2, GFR 60-89 ml/min ICD Code: N18.2 Procedures None Brief History - From Admission Patient is an 81-year-old gentleman with a history of hepatic sarcoma who has been undergoing direct liver therapy at the [facility] for his malignancy. Patient apparently had been sleeping too much at home and family was more confused with her brought to the hospital. Here the patient has had normal vital signs and oxygenation but appears dehydrated clinically with dry mucous membranes and decreased skin turgor. He notes no nausea or vomiting but has had some abdominal discomfort which she reports has been persistent since his cancer therapy had started. He notes no diarrhea or vomiting and no constipation. Normally is very active but the family says he was not very active and also prompted his visit to the hospital. I did speak with the patient's primary care physician who updated his medical history as well as his medication list. Patient has been on a diuretic and and statin despite his chronic elevated liver functions. Apparently in the emergency room the patient is confused and trying to crawl out of bed. His ammonia level was within normal limits and his CT of the brain was unremarkable on my review. Patient has been sleeping quite a bit here however when he is aroused she is alert and orientated 2. Patient was recommended for further evaluation and treatment due to probable dehydration and metabolic encephalopathy. CBC/BMP: 05/21/16 1010 05/21/16 0528 Significant Findings Laboratory Tests Test 05/18/16 05/19/16 05/20/16 05/20/16 16:02 05:20 05:22 05:23 Chloride Level 110 MEQ/L 112 MEQ/L 112 MEQ/L (98-107) (98-107) (98-107) Blood Urea Nitrogen 36 MG/DL (7-18) 32 MG/DL (7-18) 30 MG/DL (7-18) Estimat Glomerular Filtration 75 ML/MIN (>89) Rate Calcium Level 10.6 MG/DL 10.6 MG/DL (8.5-10.1) (8.5-10.1) Total Bilirubin 1.5 MG/DL 1.4 MG/DL 1.4 MG/DL (0.2-1.0) (0.2-1.0) (0.2-1.0) Aspartate Amino Transf 131 U/L (15-37) 127 U/L (15-37) 132 U/L (15-37) (AST/SGOT) Alkaline Phosphatase 152 U/L 152 U/L 161 U/L (45-117) (45-117) (45-117) Total Protein 5.4 GM/DL 5.1 GM/DL 5.2 GM/DL (6.4-8.2) (6.4-8.2) (6.4-8.2) Albumin 2.4 GM/DL 2.3 GM/DL 2.3 GM/DL (3.4-5.0) (3.4-5.0) (3.4-5.0) Red Blood Count 4.12 MIL/MM3 (4.50-5.90) Hemoglobin 12.4 GM/DL (13.0-17.0) Hematocrit 38.3 % (39.0-51.0) Platelet Count 76 TH/MM3 (150-450) Mean Platelet Volume 13.9 FL (7.0-11.0) Neutrophils (%) (Auto) 87.0 % (16.0-70.0) Lymphocytes (%) (Auto) 5.0 % (9.0-44.0) Lymphocytes # (Auto) 0.3 TH/MM3 (1.0-4.8) Sodium Level 147 MEQ/L 147 MEQ/L (136-145) (136-145) Random Glucose 73 MG/DL (74-106) Salicylates Level LESS THAN 1.7 MG/DL (2.8-20.0) Acetaminophen Level 4.4 MCG/ML (10.0-30.0) Test 05/20/16 05/20/16 05/21/16 05/21/16 11:50 20:00 05:28 10:10 Parathyroid Hormone (Intact) LESS THAN 2.5 PG/ML (12.4-76.8) C-Reactive Protein 4.60 MG/DL (0.00-0.30) Vitamin B12 Level 1831 PG/ML (193-986) Potassium Level 3.4 MEQ/L (3.5-5.1) Blood Urea Nitrogen 28 MG/DL (7-18) Estimat Glomerular Filtration 81 ML/MIN (>89) Rate Calcium Level 10.2 MG/DL (8.5-10.1) Total Bilirubin 1.5 MG/DL (0.2-1.0) Aspartate Amino Transf 136 U/L (15-37) (AST/SGOT) Alkaline Phosphatase 176 U/L (45-117) Total Protein 5.5 GM/DL (6.4-8.2) Albumin 2.4 GM/DL (3.4-5.0) Red Blood Count 4.21 MIL/MM3 (4.50-5.90) Platelet Count 92 TH/MM3 (150-450) Mean Platelet Volume 12.7 FL (7.0-11.0) Prothrombin Time 15.4 SEC (9.8-11.6) Imaging Last Impressions Brain MRI 05/19/16 0000 Signed Impressions: Service Date/Time: Thursday, May 19, 2016 12:41 - CONCLUSION: There is a 1.9 x 1.7 cm schwannoma both intra-and extra canalicular. It is peripheral enhancing with some central areas of non-enhancement. It is larger than in 2010. Bruno James MD Head CT 05/17/166 Signed Impressions: Service Date/Time: Tuesday, May 17, 2016 18:53 - CONCLUSION: Cerebral atrophy without acute intracranial abnormality. Giovanny Lima MD PE at Discharge GENERAL: Elderly chronically ill-appearing male patient. SKIN: Warm and dry. HEAD: Normocephalic. EYES: No scleral icterus. No injection or drainage. NECK: Supple, trachea midline. No JVD or lymphadenopathy. CARDIOVASCULAR: Regular rate and rhythm without murmurs, gallops, or rubs. RESPIRATORY: Breath sounds equal bilaterally. No accessory muscle use. GASTROINTESTINAL: Abdomen soft, non-tender, nondistended. EXTREMITIES: No cyanosis, or edema. NEUROLOGICAL: Awake, alert, and oriented to self, type of building, and CAD. Patient is able to correctly tell me that it is 2017 when he is given multiple choice options. He knows the certified peer specialist. Patient is generally weak but follows all commands. Face is symmetric. Speech is quiet but within normal limits. He has generalized weakness but moves all 4 extremities on command. Transfer Summary Hospital Course The patient was admitted to the hospital and treated with IV fluids for the hypercalcemia which improved. The patient does have a history of cirrhosis presumably from alcoholism but has not had an alcoholic beverage for the past 5- 6 years as per his . Ammonia level was not elevated. Brain MRI did show a 1.9 x 1.7 cm schwannoma slightly larger compared to 2010 which is a known chronic finding. EEG showed no acute epileptiform activity. The patient remained confused but mentation has been clearing somewhat. Neurology evaluated the patient and felt that he likely had an acute metabolic encephalopathy due to the hypercalcemia, and also may have some early dementia or Parkinson's disease. Tramadol was recommended to be discontinued. PTH levels were slightly low. A PTH related peptide is pending as well as vitamin D metabolites. I have discontinued his hydrochlorothiazide as this may have caused the hypercalcemia as well. The patient's has opted for him to go to [facility] nursing facility. I did discuss with her in detail the above and have recommended a repeat BMP in 2 days at the nursing facility to recheck calcium levels. We also discussed discontinuing the hydrochlorothiazide. And that she will need to have him follow-up with his primary care physician for the pending lab results as above. Pt Condition on Discharge: Stable Discharge Disposition: Discharge to SNF Discharge Time: > 30 minutes Discharge Instructions DIET: Follow Instructions for: As Tolerated, No Restrictions Activities you can perform: Regular-No Restrictions New Medications: Nifedipine ER 24 HR (Procardia XL) 30 Mg Tab 30 MG PO DAILY Blood Pressure Management #30 Ref 0 TAB Acetaminophen (Acetaminophen) 325 Mg Tab 650 MG PO Q6H PRN FEVER #60 TAB Metoprolol Succinate ER 24 HR (Metoprolol Succinate ER 24 HR) 25 Mg Tab 25 MG PO DAILY Blood Pressure Management #30 TAB Continued Medications: Atorvastatin (Atorvastatin) 20 Mg Tab 20 MG PO HS Cholesterol Management #30 Ref 0 TAB Magnesium Oxide (Magnesium Oxide) 400 Mg Tab 400 MG PO EVERY OTHER DAY Nutritional Supplement Ref 0 TAB Multiple Vitamin (Multiple Vitamin) 1 Tab 1 TAB PO DAILY Nutritional Supplement Ref 0 TAB Omeprazole (Omeprazole) 20 Mg Tab 20 MG PO DAILY #30 Ref 0 TAB Discontinued Medications: Triamterene-Hydrochlorothiazide (Triamterene-Hydrochlorothiazide) 37.5-25 Mg Cap 1 CAP PO DAILY #30 Ref 0 CAP Amy Lopez MD May 21, 2016 11:13
[2016-05-21 12:00] VITALS: BP 93/50; PULSE 54; RESP 20; TEMP 97.4; O2SAT 98
--- NOTE | 2016-05-21 13:32 | HHI.PR ---
Subjective Remarks Patient is still weak and confused. He endorses confusion. Blood pressure mildly low at noon today. Objective Vitals Vital Signs Date Time Temp Pulse Resp B/P Pulse Ox O2 Delivery O2 Flow Rate FiO2 05/21/16 12:00 97.4 54 20 93/50 98 05/21/16 08:00 97.6 69 20 116/50 95 05/21/16 00:00 97.2 57 20 122/74 100 05/20/16 20:01 98.6 56 21 133/70 98 05/20/16 16:00 98.2 62 18 120/80 96 I/O 05/20/16 05/20/16 05/20/16 05/21/16 05/21/16 05/21/16 07:00 15:00 23:00 07:00 15:00 23:00 Intake Total 60 ml 452 ml 388 ml 726 ml Output Total 150 ml 1750 ml 800 ml Balance -90 ml -1298 ml -412 ml 726 ml Intake Oral 60 ml 450 ml 240 ml 240 ml IV Total 0 ml 2 ml 148 ml 486 ml Output Urine Total 150 ml 1750 ml 800 ml # Voids 2 # Bowel Movements 0 0 2 0 Result Diagram: 05/21/16 1010 05/21/16 0528 Objective Remarks GENERAL: Elderly chronically ill-appearing male patient. SKIN: Warm and dry. HEAD: Normocephalic. EYES: No scleral icterus. No injection or drainage. NECK: Supple, trachea midline. No JVD or lymphadenopathy. CARDIOVASCULAR: Regular rate and rhythm without murmurs, gallops, or rubs. RESPIRATORY: Breath sounds equal bilaterally. No accessory muscle use. GASTROINTESTINAL: Abdomen soft, non-tender, nondistended. EXTREMITIES: No cyanosis, or edema. NEUROLOGICAL: Awake, alert, and oriented to self, type of building, and CAD. Patient is able to correctly tell me that it is 2017 when he is given multiple choice options. He knows the bowling alley refinisher. Patient is generally weak but follows all commands. Face is symmetric. Speech is quiet but within normal limits. He has generalized weakness but moves all 4 extremities on command. Procedures None A/P Problem List: (1) Metabolic encephalopathy ICD Code: G93.41 Status: Acute (2) Weakness ICD Code: R53.1 Status: Acute (3) Hypercalcemia ICD Code: E83.52 Status: Acute (4) LFT elevation ICD Code: R94.5 Status: Acute (5) MDS (myelodysplastic syndrome) ICD Code: D46.9 Status: Acute (6) CKD (chronic kidney disease) stage 2, GFR 60-89 ml/min ICD Code: N18.2 Status: Acute Assessment and Plan -Acute metabolic encephalopathy probably secondary to hypercalcemia. Possible underlying dementia with parkinsonism features. Ammonia is not elevated. B-12 level elevated. Urine drug screen was negative. EEG negative. Brain MRI negative. He is nonfocal. For lumbar puncture today as well as MRI of the cervical spine. Appreciate neurology input. Continue speech therapy cognitive therapy. -Acute hypercalcemia, likely secondary to thiazide diuretic as well as dehydration. Now resolved/improving. DC thiazide. PTH was mildly low. PTH related peptide is pending. Vitamin D metabolites are pending. -Sarcoma of the liver followed at [facility]. -AST elevation possibly secondary to the sarcoma. Stable. -Generalized weakness. Continue physical therapy. -Myelodysplastic syndrome with chronic thrombocytopenia. Monitor cell lines. 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 Currently compensated. -Hypertension. Blood pressure running low. Hold metoprolol. Repeat blood pressure now. Per nurse he is taking good by mouth intake. -Acute hypernatremia secondary to dehydration. Resolved. Hep-Lock IV. -Chronic kidney disease stage II to 3. At baseline. -DVT prophylaxis with SCDs. Discharge Planning To senior living facility in 1-2 days of lumbar punctures negative. Amy Lopez MD May 21, 2016 13:32
--- NOTE | 2016-05-21 14:36 | PD.RAD ---
Post Procedure Progress Note Pre Procedure Diagnosis: (1) Weakness Post Procedure Diagnosis: (1) Weakness Procedure Date: May 21, 2016 Supervising Radiologist: Augustine Quiroga JR Proceduralist/Assist: Mouna Gonzales RT(R), RT Lydia(R)() Anesthesia: Local Plan of Activity Patient to Unit: Nursing Unit Patient Condition: Good See PACS Report for procedural detail/treatment Spinal Procedure Lumbar Puncture L2-L3, L3-L4 Fluid Removal (CCs): 8 Fluid Description: Clear Puncture Time: 14:15 Jr. Junaid,Augustine Doyle MD May 21, 2016 14:36
[2016-05-21 15:00] LABS: GROSS BLOOD TUBE #1 TRACE (0); SUPERNATE COLOR TUBE #1 CLEAR (CLEAR)
[2016-05-21 15:01] LABS: GROSS BLOOD TUBE #2 TRACE (0); GROSS BLOOD TUBE #3 TRACE (0); GROSS BLOOD TUBE #4 TRACE (0); SUPERNATE COLOR TUBE #2 CLEAR (CLEAR); SUPERNATE COLOR TUBE #3 CLEAR (CLEAR); SUPERNATE COLOR TUBE #4 CLEAR (CLEAR); VOLUME TUBE # 4 2.5 ML
[2016-05-21 15:48] VITALS: BP 125/74; PULSE 62; RESP 20; TEMP 96.8; O2SAT 96
[2016-05-21 16:27] LABS: CSF LYMPHOCYTES 0 %; CSF NEUTROPHILS 0 %; WBC TUBE #4 0 /MM3 (0-10)
[2016-05-21 20:00] VITALS: BP 120/56; PULSE 66; RESP 20; TEMP 98.5; O2SAT 98
[2016-05-22] VITALS: BP 142/73; PULSE 75; RESP 20; TEMP 96.5; O2SAT 99
--- NOTE | 2016-05-22 07:42 | RADHPO ---
EXAM DATE/TIME: 05/21/2016 14:07 [facility] COMPARISON: No previous studies available for comparison. INDICATIONS : Patient with a history of confusion, altered mental status. MEDICAL HISTORY : Hepatic sarcoma, hepatosplenomegaly, mild dysplastic syndrome with refractory anemia and thrombocytop enia Chronic disease stage II Hepatic cirrhosis, history of alcoholism Hyperlipidemia HTN Dyspepsia SURGICAL HISTORY : Cataracts Liver biopsy ENCOUNTER: Initial ACUITY: 4 -6 days PAIN SCORE: 0/10 LUMBAR PUNCTURE TIME: 1415 hours FLUORO TIME: 1.98 minutes IMAGE SERIES: 0 ACCESS LEVEL: Initial access to L4 yielded no fluid. Access at L2-3 allowed fluid removal. FLUID: 9 cc of clear CSF was collected and sent to the laboratory for analysis. PROCEDURE : 1. Fluoroscopic guided lumbar puncture. The risks, benefits and alternatives to the procedure were explained and verbal and written consent w as obtained. The site was prepped in sterile fashion. Full sterile technique was used, including ca p, mask, sterile gloves and gown and a large sterile sheet. Hand hygiene and 2% chlorhexidine and/or betadine/alcohol prep was utilized per protocol for cutaneous antisepsis. The skin and subcutaneous tissues were infiltrated with local anesthetic solution. With fluoroscopic guidance the lumbar thecal sac was punctured at the L3-L4 level below the left L3 l stephanie. Confirmation of the appropriate position the needle was confirmed in orthogonal views. I was u nable to obtain fluid at this level. The needle was removed and access at the L2-L3 level below the l eft L2 lamina yielded clear CSF fluid. The fluid described above was removed without difficulty. The patient tolerated the procedure well and there were no complications. CONCLUSION: Uncomplicated fluoroscopically guided lumbar puncture. Augustine Quiroga Jr., MD on May 22, 2016 at 7:38 Board Certified Radiologist. This report was verified electronically.
[2016-05-22 08:00] VITALS: BP 114/50; PULSE 57; RESP 16; TEMP 96.9; O2SAT 97
[2016-05-22] MEDS: MULTIVITAMIN TAB PO SCH (09:08)
[2016-05-22] MEDS: PANTOPRAZOLE SOD 20 MG DELAYED RELEASE TAB PO SCH (09:08)
[2016-05-22] MEDS: SODIUM CHLORIDE 0.9% FLUSH 5 ML FLUSH FLUSH SCH (09:08)
--- NOTE | 2016-05-22 10:27 | HHI.PR ---
Subjective Remarks Mr. Leon is seen on his way down to the MRI. He remains mildly confused but states that he feels clearer today. He denies pain or dyspnea. Objective Vitals Vital Signs Date Time Temp Pulse Resp B/P Pulse Ox O2 Delivery O2 Flow Rate FiO2 05/22/16 08:00 96.9 57 16 114/50 97 05/22/16 00:00 96.5 75 20 142/73 99 05/21/16 20:00 98.5 66 20 120/56 98 05/21/16 15:48 96.8 62 20 125/74 96 05/21/16 12:00 97.4 54 20 93/50 98 I/O 05/21/16 05/21/16 05/21/16 05/22/16 05/22/16 05/22/16 07:00 15:00 23:00 07:00 15:00 23:00 Intake Total 726 ml 100 ml 310 ml 60 ml Output Total 450 ml 300 ml 100 ml Balance 726 ml -350 ml 10 ml -40 ml Intake Oral 240 ml 100 ml 60 ml 60 ml IV Total 486 ml 250 ml 0 ml Output Urine Total 450 ml 300 ml 100 ml # Voids 2 # Bowel Movements 0 1 0 0 Result Diagram: 05/21/16 1010 05/21/16 0528 Objective Remarks GENERAL: Elderly chronically ill-appearing male patient. SKIN: Warm and dry. HEAD: Normocephalic. EYES: No scleral icterus. No injection or drainage. NECK: Supple, trachea midline. No JVD or lymphadenopathy. CARDIOVASCULAR: Regular rate and rhythm without murmurs, gallops, or rubs. RESPIRATORY: Breath sounds equal bilaterally. No accessory muscle use. GASTROINTESTINAL: Abdomen soft, non-tender, nondistended. EXTREMITIES: No cyanosis, or edema. NEUROLOGICAL: Awake, alert, and oriented to self, type of building, and CAD. Patient is able to correctly tell me that it is 2017 when he is given multiple choice options. He knows the senior commissions analyst. Patient is generally weak but follows all commands. Face is symmetric. Speech is quiet but within normal limits. He has generalized weakness but moves all 4 extremities on command. Procedures None A/P Problem List: (1) Metabolic encephalopathy ICD Code: G93.41 Status: Acute (2) Weakness ICD Code: R53.1 Status: Acute (3) Hypercalcemia ICD Code: E83.52 Status: Acute (4) LFT elevation ICD Code: R94.5 Status: Acute (5) MDS (myelodysplastic syndrome) ICD Code: D46.9 Status: Acute (6) CKD (chronic kidney disease) stage 2, GFR 60-89 ml/min ICD Code: N18.2 Status: Acute Assessment and Plan -Acute metabolic encephalopathy probably secondary to hypercalcemia. Possible underlying dementia with parkinsonism features. Ammonia is not elevated. B-12 level elevated. Urine drug screen was negative. EEG negative. Brain MRI negative. He is nonfocal. Status post lumbar puncture on 05/21 showing clear fluid with mildly elevated protein. MRI cervical spine pending today. Appreciate neurology input. Continue speech therapy cognitive therapy. -Acute hypercalcemia, likely secondary to thiazide diuretic as well as dehydration. Now resolved/improving. DC thiazide. PTH was mildly low. PTH related peptide is pending. Vitamin D metabolites are pending. 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 -AST elevation possibly secondary to the sarcoma. Stable. -Generalized weakness. Continue physical therapy. -Myelodysplastic syndrome with chronic thrombocytopenia. Stable. Monitor cell lines. 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 Currently compensated. -Hypertension. Blood pressure running low. Hold metoprolol. Per nurse he is taking good by mouth intake. -Acute hypernatremia secondary to dehydration. Resolved. Hep-Lock IV. -Chronic kidney disease stage II to 3. At baseline. -DVT prophylaxis with SCDs. Discharge Planning To residential facility when cleared by neurology. Amy Lopez MD May 22, 2016 10:27
[2016-05-22 12:01] VITALS: BP 138/74; PULSE 70; RESP 16; TEMP 96.6; O2SAT 99
--- NOTE | 2016-05-22 12:34 | RADRPT ---
EXAM DATE/TIME: 05/22/2016 10:55 [facility] COMPARISON: No previous studies available for comparison. INDICATIONS: Metastatic disease. Confusion and weakness. MEDICAL HISTORY: Hypertension. Hypercholesterolemia. Liver cancer with mets and chronic kidney disease. SURGICAL HISTORY: Veins removed from legs, cataracts, liver biopsy and lens replacements. ENCOUNTER: Initial ACUITY: 1 day PAIN SCORE: 0/10 LOCATION: Neck. TECHNIQUE: Multiplanar, multisequence MRI examination of the cervical spine was performed. FINDINGS: By MRI the marrow signal in the cervical spine is homogeneous. Signal intensity in the cord is rosendo l. Cerebellar tonsils are in normal anatomic position. C2-C3: The thecal sac has a normal configuration. There is no evidence of disc herniation or spinal canal s tenosis. The neural foramina are patent bilaterally. C3-C4: Mild uncinate ridging present with significant spinal stenosis. Neural foramina adequate. C4-C5: Mild uncinate ridging is present. Neural foramina adequate. C5-C6: Mild central disc bulging is present, neural foramina adequate. C6-C7: Mild disc bulging is present. Neural foramina adequate. C7-T1: The thecal sac has a normal configuration. There is no evidence of disc herniation or spinal canal s tenosis. The neural foramina are patent bilaterally. CONCLUSION: 1. Mild degenerative changes without evidence for metastatic disease. Alli Albert MD FACR on May 22, 2016 at 12:13 Board Certified Radiologist. This report was verified electronically.
--- NOTE | 2016-05-22 14:02 | HHI.DS ---
Discharge Summary Admission Date May 19, 2016 at 11:58 Discharge Date: May 22, 2016 Admitting Diagnosis confusion, hypercalcemia, prerenal azotemia (1) Metabolic encephalopathy ICD Code: G93.41 Diagnosis: Principal (2) Weakness ICD Code: R53.1 (3) Hypercalcemia ICD Code: E83.52 (4) LFT elevation ICD Code: R94.5 (5) MDS (myelodysplastic syndrome) ICD Code: D46.9 (6) CKD (chronic kidney disease) stage 2, GFR 60-89 ml/min ICD Code: N18.2 Procedures Lumbar puncture Brief History - From Admission Patient is an 81-year-old gentleman with a history of hepatic sarcoma who has been undergoing direct liver therapy at the [facility] for his malignancy. Patient apparently had been sleeping too much at home and family was more confused with her brought to the hospital. Here the patient has had normal vital signs and oxygenation but appears dehydrated clinically with dry mucous membranes and decreased skin turgor. He notes no nausea or vomiting but has had some abdominal discomfort which she reports has been persistent since his cancer therapy had started. He notes no diarrhea or vomiting and no constipation. Normally is very active but the family says he was not very active and also prompted his visit to the hospital. I did speak with the patient's primary care physician who updated his medical history as well as his medication list. Patient has been on a diuretic and and statin despite his chronic elevated liver functions. Apparently in the emergency room the patient is confused and trying to crawl out of bed. His ammonia level was within normal limits and his CT of the brain was unremarkable on my review. Patient has been sleeping quite a bit here however when he is aroused she is alert and orientated 2. Patient was recommended for further evaluation and treatment due to probable dehydration and metabolic encephalopathy. CBC/BMP: 05/21/16 1010 05/21/16 0528 Significant Findings Laboratory Tests Test 05/20/16 05/20/16 05/20/16 05/20/16 05:22 05:23 11:50 20:00 Salicylates Level LESS THAN 1.7 MG/DL (2.8-20.0) Acetaminophen Level 4.4 MCG/ML (10.0-30.0) Sodium Level 147 MEQ/L (136-145) Chloride Level 112 MEQ/L (98-107) Blood Urea Nitrogen 30 MG/DL (7-18) Calcium Level 10.6 MG/DL (8.5-10.1) Total Bilirubin 1.4 MG/DL (0.2-1.0) Aspartate Amino Transf 132 U/L (15-37) (AST/SGOT) Alkaline Phosphatase 161 U/L (45-117) Total Protein 5.2 GM/DL (6.4-8.2) Albumin 2.3 GM/DL (3.4-5.0) Parathyroid Hormone (Intact) LESS THAN 2.5 PG/ML (12.4-76.8) C-Reactive Protein 4.60 MG/DL (0.00-0.30) Vitamin B12 Level 1831 PG/ML (193-986) Test 05/21/16 05/21/16 05/21/16 05:28 10:10 14:13 Potassium Level 3.4 MEQ/L (3.5-5.1) Blood Urea Nitrogen 28 MG/DL (7-18) Estimat Glomerular Filtration 81 ML/MIN (>89) Rate Calcium Level 10.2 MG/DL (8.5-10.1) Total Bilirubin 1.5 MG/DL (0.2-1.0) Aspartate Amino Transf 136 U/L (15-37) (AST/SGOT) Alkaline Phosphatase 176 U/L (45-117) Total Protein 5.5 GM/DL (6.4-8.2) Albumin 2.4 GM/DL (3.4-5.0) Red Blood Count 4.21 MIL/MM3 (4.50-5.90) Platelet Count 92 TH/MM3 (150-450) Mean Platelet Volume 12.7 FL (7.0-11.0) Prothrombin Time 15.4 SEC (9.8-11.6) CSF Gross Blood (Tube 1) TRACE (0) CSF Gross Blood (Tube 2) TRACE (0) CSF Gross Blood (Tube 3) TRACE (0) CSF Gross Blood (Tube 4) TRACE (0) CSF RBC (Tube 4) 86 /MM3 (NONE) CSF Total Protein 49.1 MG/DL (15.0-45.0) Imaging Last Impressions Lumbar Puncture Fluoroscopy 05/21/16 0000 Signed Impressions: Service Date/Time: May 14:07 - CONCLUSION: Uncomplicated fluoroscopically guided lumbar puncture. Augustine Quiroga Jr., MD Brain MRI 05/19/16 0000 Signed Impressions: Service Date/Time: Thursday, May 19, 2016 12:41 - CONCLUSION: There is a 1.9 x 1.7 cm schwannoma both intra-and extra canalicular. It is peripheral enhancing with some central areas of non-enhancement. It is larger than in 2010. Bruno James MD Head CT 05/17/16 1816 Signed Impressions: Service Date/Time: Tuesday, May 17, 2016 18:53 - CONCLUSION: Cerebral atrophy without acute intracranial abnormality. Giovanny Lima MD PE at Discharge GENERAL: Elderly chronically ill-appearing male patient. SKIN: Warm and dry. HEAD: Normocephalic. EYES: No scleral icterus. No injection or drainage. NECK: Supple, trachea midline. No JVD or lymphadenopathy. CARDIOVASCULAR: Regular rate and rhythm without murmurs, gallops, or rubs. RESPIRATORY: Breath sounds equal bilaterally. No accessory muscle use. GASTROINTESTINAL: Abdomen soft, non-tender, nondistended. EXTREMITIES: No cyanosis, or edema. NEUROLOGICAL: Awake, alert, and oriented to self, type of building, and CAD. Patient is able to correctly tell me that it is 2017 when he is given multiple choice options. He knows the fish cleaner. Patient is generally weak but follows all commands. Face is symmetric. Speech is quiet but within normal limits. He has generalized weakness but moves all 4 extremities on command. Transfer Summary Hospital Course The patient was admitted to the hospital and treated with IV fluids for the hypercalcemia which improved. The patient does have a history of cirrhosis presumably from alcoholism but has not had an alcoholic beverage for the past 5- 6 years as per his . Ammonia level was not elevated. Brain MRI did show a 1.9 x 1.7 cm schwannoma slightly larger compared to 2010 which is a known chronic finding. EEG showed no acute epileptiform activity. The patient remained confused but mentation has been clearing somewhat. Neurology evaluated the patient and felt that he likely had an acute metabolic encephalopathy due to the hypercalcemia, and also may have some early dementia or Parkinson's disease. Tramadol was recommended to be discontinued. Lumbar puncture was ordered, CSF fluid cultures are negative at 24 hours, fluid was unremarkable except for mildly elevated protein. PTH levels were slightly low. A PTH related peptide is pending as well as vitamin D metabolites. I have discontinued his hydrochlorothiazide as this may have caused the hypercalcemia as well. The patient's has opted for him to go to [facility]. I did discuss with her in detail the above and have recommended a repeat BMP in 2 days at the nursing facility to recheck calcium levels. We also discussed discontinuing the hydrochlorothiazide. And that she will need to have him follow-up with his primary care physician for the pending lab results as above. Follow-up with neurology Dr. Bustamante on 2 weeks. Pt Condition on Discharge: Stable Discharge Disposition: Discharge to SNF Discharge Time: > 30 minutes Discharge Instructions DIET: Follow Instructions for: As Tolerated, No Restrictions Activities you can perform: Regular-No Restrictions New Medications: Nifedipine ER 24 HR (Procardia XL) 30 Mg Tab 30 MG PO DAILY Blood Pressure Management #30 Ref 0 TAB Acetaminophen (Acetaminophen) 325 Mg Tab 650 MG PO Q6H PRN FEVER #60 TAB Metoprolol Succinate ER 24 HR (Metoprolol Succinate ER 24 HR) 25 Mg Tab 25 MG PO DAILY Blood Pressure Management #30 TAB Continued Medications: Atorvastatin (Atorvastatin) 20 Mg Tab 20 MG PO HS Cholesterol Management #30 Ref 0 TAB Magnesium Oxide (Magnesium Oxide) 400 Mg Tab 400 MG PO EVERY OTHER DAY Nutritional Supplement Ref 0 TAB Multiple Vitamin (Multiple Vitamin) 1 Tab 1 TAB PO DAILY Nutritional Supplement Ref 0 TAB Omeprazole (Omeprazole) 20 Mg Tab 20 MG PO DAILY #30 Ref 0 TAB Discontinued Medications: Triamterene-Hydrochlorothiazide (Triamterene-Hydrochlorothiazide) 37.5-25 Mg Cap 1 CAP PO DAILY #30 Ref 0 CAP Amy Lopez MD May 22, 2016 14:01
[2016-05-22 15:53] VITALS: BP 128/64; PULSE 74; RESP 16; TEMP 97.1; O2SAT 99
[2016-05-23 12:25] LABS: HSV 1,PCR Negative (Negative)
[2016-05-23 22:57] LABS: ENTEROVIRUS PCR RESULT Negative (Negative); ENTEROVIRUS PCR SPEC SOURCE CSF (())
[2016-05-24 14:34] LABS: CSF CRYPTOCOCCUS AG CONF ND (NOT DETECTD)
[2016-05-26 19:54] LABS: VDRL CSF NON-REACTIVE (())
== END 2016-05-22 15:58 | DRG 640 ==
LOC: PHED 17:39 → PHEDA 20:32 → PH3B 21:30 → OBSVTOIN 05-19 11:58
PROVIDERS: ADMIT Family Medicine; ATTEND Family Medicine
PROC: 009U3ZX Drainage of Spinal Canal, Percutaneous Approach, Diagnostic (ICD-10-PCS; principal; 2016-05-21)
DX: E86.0 Dehydration (principal); G93.41 Metabolic encephalopathy; E87.0 Hyperosmolality and hypernatremia; K74.60 Unspecified cirrhosis of liver; D69.6 Thrombocytopenia, unspecified; E83.52 Hypercalcemia; C22.4 Other sarcomas of liver; D46.4 Refractory anemia, unspecified; R16.2 Hepatomegaly with splenomegaly, not elsewhere classified; I12.9 Hypertensive chronic kidney disease with stage 1 through stage 4 chronic kidney disease, or unspecified chronic kidney disease; N18.2 Chronic kidney disease, stage 2 (mild); D46.9 Myelodysplastic syndrome, unspecified; D36.10 Benign neoplasm of peripheral nerves and autonomic nervous system, unspecified; E78.5 Hyperlipidemia, unspecified
CPT/HCPCS: 51702; 62270; 70450; 70553; 72141; 76937; 77003; 80053; 80307; 80329; 81001; 82140; 82306; 82397; 82607; 82652; 82945; 83873; 83970; 84157; 84443; 85007; 85025; 85027; 85610; 85652; 85730; 86140; 86403; 86592; 87070; 87205; 87498; 87529; 88112; 89051; 90732; 93005; 95819; A9579; G0378; G0480; G8987-GO; G8987-GP; G8988-GO; G8988-GP; J1940; J7030

== ENCOUNTER 2016-06-02 11:31 | Inpatient (IN) | payer MEDICARE, OTHER ==
[~2016-06-02 11:31] MED LIST changes: +ACET325T PO; -ATOR20TA PO; +ATOR20TA15 PO; +MAGN400T2 PO; +METO25TA6 PO; +MULTTAB67 PO; +NIFE1TAB85 PO; +OMEP20TA PO; -PRIL20CA PO; -TAB-TAB; -TRIA1CAP OR
[2016-06-02 11:37] VITALS: BP 97/61; PULSE 90; RESP 20; TEMP 97.6; O2SAT 96
--- NOTE | 2016-06-02 12:33 | PD ---
HPI Chief Complaint: Hip Injury Time Seen by Provider: 12:23 Travel History International Travel<30 days: No Contact w/Intl Traveler<30days: No Traveled to known affect area: No History of Present Illness HPI 81-year-old male complains of right hip pain. Patient resides at local snf. [facility] staff found the with pain and swelling of the right leg this morning. EMS was called. Patient was given morphine 10 mg IV prior to arrival. Patient is resting comfortably in bed. Patient's unable to provide any information now. Patient has history of liver cancer with metastases, dyslipidemia, hypertension, generalized confusion and weakness. No reported trauma or fall. PFSH Past Medical History Autoimmune Disease: No Cancer: Yes (LIVER WITH METS ) Cardiovascular Problems: Yes High Cholesterol: Yes Chemotherapy: No Cirrhosis: Yes Diabetes: No Endocrine: No Gastrointestinal Disorders: Yes (LIVER CA WITH METS) Genitourinary: Yes Hiatal Hernia: No Hypertension: Yes Immune Disorder: No Musculoskeletal: No Neurologic: Yes (CONFUSION, WEAKNESS) Psychiatric: Yes (PREVIOUS HISTORY OF ALCOHOLISM) Reproductive: No Respiratory: No Immunizations Current: Yes (FLU SHOT) Radiation Therapy: No Thyroid Disease: No Tetanus Vaccination: Unknown Past Surgical History Abdominal Surgery: Yes (LIVER BIOPSY) AICD: No Cardiac Surgery: No Ear Surgery: No Endocrine Surgery: No Eye Surgery: Yes (BILATERAL CATARACTS AND IMPLANTS) Genitourinary Surgery: No Joint Replacement: No Oral Surgery: No Pacemaker: No Thoracic Surgery: No Other Surgery: Yes ( BILATERAL CATARACT) Social History Alcohol Use: No (UNKNOWN) Tobacco Use: No Substance Use: No Allergies-Medications (Allergen,Severity, Reaction): Coded Allergies: No Known Allergies (Verified , 03/18/14) Reported Meds & Prescriptions Reported Meds & Active Scripts Active Acetaminophen 325 Mg Tab 650 Mg PO Q6H PRN Procardia XL (Nifedipine) 30 Mg Tab 30 Mg PO DAILY Metoprolol Succinate ER 24 HR (Metoprolol Succinate) 25 Mg Tab 25 Mg PO DAILY Reported Magnesium Oxide 400 Mg Tab 400 Mg PO EVERY OTHER DAY Atorvastatin (Atorvastatin Calcium) 20 Mg Tab 20 Mg PO HS Omeprazole 20 Mg Tab 20 Mg PO DAILY Multiple Vitamin 1 Tab 1 Tab PO DAILY Review of Systems ROS Limitations: Altered Mental Status General / Constitutional: No: Fever Eyes: No: Visual changes HENT: No: Headaches Cardiovascular: No: Chest Pain or Discomfort Respiratory: No: Shortness of Breath Gastrointestinal: No: Abdominal Pain Genitourinary: No: Dysuria Musculoskeletal: Positive: Pain Skin: No Rash Neurologic: No: Weakness Psychiatric: No: Depression Endocrine: No: Polydipsia Hematologic/Lymphatic: No: Easy Bruising Physical Exam Narrative GENERAL: Well-nourished, well-developed patient. SKIN: Warm and dry. HEAD: Normocephalic. EYES: No scleral icterus. No injection or drainage. NECK: Supple, trachea midline. No JVD or lymphadenopathy. CARDIOVASCULAR: Regular rate and rhythm without murmurs, gallops, or rubs. RESPIRATORY: Breath sounds equal bilaterally. No accessory muscle use. GASTROINTESTINAL: Abdomen soft, non-tender, nondistended. MUSCULOSKELETAL: No cyanosis, or edema. BACK: Nontender without obvious deformity. No CVA tenderness. Neurologic exam: Patient is sleeping in bed, responded to painful stimuli. Unable to move lower extremity. Data Data Last Documented VS Vital Signs Date Time Temp Pulse Resp B/P Pulse Ox O2 Delivery O2 Flow Rate FiO2 06/02/16 13:34 97 06/02/16 11:37 97.6 90 20 97/61 Orders Hip, Uni(Ap&Lat) W Ap Pelvis (06/02/16 12:24) Electrocardiogram (06/02/16 12:28) Complete Blood Count With Diff (06/02/16 12:28) Comprehensive Metabolic Panel (06/02/16 12:28) Prothrombin Time / Inr (Pt) (06/02/16 12:28) Act Partial Throm Time (Ptt) (06/02/16 12:28) Urinalysis - C+S If Indicated (06/02/16 12:28) Chest, Single Ap (06/02/16 12:28) Iv Access Insert/Monitor (06/02/16 12:28) Ecg Monitoring (06/02/16 12:28) Oximetry (06/02/16 12:28) Labs Laboratory Tests Test 06/02/16 06/02/16 12:15 14:00 White Blood Count 14.8 TH/MM3 Red Blood Count 4.47 MIL/MM3 Hemoglobin 13.7 GM/DL Hematocrit 42.6 % Mean Corpuscular Volume 95.3 FL Mean Corpuscular Hemoglobin 30.7 PG Mean Corpuscular Hemoglobin 32.2 % Concent Red Cell Distribution Width 16.6 % Platelet Count 106 TH/MM3 Mean Platelet Volume 13.1 FL Neutrophils (%) (Auto) 88.5 % Lymphocytes (%) (Auto) 3.6 % Monocytes (%) (Auto) 6.9 % Eosinophils (%) (Auto) 0.0 % Basophils (%) (Auto) 1.0 % Neutrophils # (Auto) 13.1 TH/MM3 Lymphocytes # (Auto) 0.5 TH/MM3 Monocytes # (Auto) 1.0 TH/MM3 Eosinophils # (Auto) 0.0 TH/MM3 Basophils # (Auto) 0.1 TH/MM3 CBC Comment DIFF FINAL Differential Comment Prothrombin Time 19.7 SEC Prothromb Time International 1.7 RATIO Ratio Activated Partial 28.5 SEC Thromboplast Time Sodium Level 154 MEQ/L Potassium Level 4.0 MEQ/L Chloride Level 114 MEQ/L Carbon Dioxide Level 29.4 MEQ/L Anion Gap 11 MEQ/L Blood Urea Nitrogen 76 MG/DL Creatinine 1.77 MG/DL Estimat Glomerular Filtration 37 ML/MIN Rate Random Glucose 71 MG/DL Calcium Level 12.3 MG/DL Protein Corrected Calcium MG/DL Total Bilirubin 3.0 MG/DL Aspartate Amino Transf 269 U/L (AST/SGOT) Alanine Aminotransferase 72 U/L (ALT/SGPT) Alkaline Phosphatase 250 U/L Total Protein 5.9 GM/DL Albumin 2.6 GM/DL Urine Color YELLOW Urine Turbidity HAZY Urine pH 5.0 Urine Specific Paron 1.017 Urine Protein TRACE mg/dL Urine Glucose (UA) NEG mg/dL Urine Ketones NEG mg/dL Urine Occult Blood NEG Urine Nitrite NEG Urine Bilirubin NEG Urine Urobilinogen 4.0 MG/DL Urine Leukocyte Esterase NEG Urine RBC 3 /hpf Urine WBC 1 /hpf Urine Squamous Epithelial <1 /hpf Cells Urine Bacteria RARE /hpf Urine Hyaline Casts 10 /lpf Urine Granular Casts 1 /lpf Urine Mucus FEW /lpf Microscopic Urinalysis Comment CULT NOT INDICATED MDM Medical Decision Making Medical Screen Exam Complete: Yes Emergency Medical Condition: Yes Interpretation(s) 1508 p.m. X-ray right hip show fracture proximal shaft of the femur. X-ray show possible consolidation versus mass right upper lobe. CBC W is a 14.8. Platelet 106. 88 neutrophil. Sodium 154. Calcium 12.3. AST 269. ALT 72. Alkaline phosphatase 250. Differential Diagnosis Differential diagnosis including sprain, fracture, dislocation. Narrative Course 81-year-old male with reported right hip pain this morning from local snf. Patient has history of liver cancer with metastases. Normal saline solution 1 L IV bolus. Diagnosis Primary Impression: Fracture of right femur Qualified Code: S72.341A - Closed displaced spiral fracture of shaft of right femur, initial encounter Additional Impressions: Lung mass Hypercalcemia Elevated LFTs Admitting Information Admitting Physician Requests: Admit Nael Soriano MD Jun 02, 2016 12:33
[2016-06-02 13:10] LABS: AUTOMATED NEUTROPHIL # 13.1 TH/MM3 (1.8-7.7); BASOPHIL # 0.1 TH/MM3 (0-0.2); HEMATOCRIT 42.6 % (39.0-51.0); HEMO FLAGS DIFF FINAL; LYMPH % 3.6 % (9.0-44.0); LYMPHOCYTE # 0.5 TH/MM3 (1.0-4.8); MEAN CELL VOLUME 95.3 FL (80.0-100.0); MEAN CORPUSCULAR HEMOGLOBIN 30.7 PG (27.0-34.0); MEAN CORPUSCULAR HGB CONC 32.2 % (32.0-36.0); MONO % 6.9 % (0.0-8.0); NEUT % 88.5 % (16.0-70.0); PLATELET COUNT 106 TH/MM3 (150-450); RED BLOOD COUNT 4.47 MIL/MM3 (4.50-5.90); RED CELL DISTRIBUTION WIDTH 16.6 % (11.6-17.2); WHITE BLOOD COUNT 14.8 TH/MM3 (4.0-11.0)
[2016-06-02 13:18] LABS: APTT (PATIENT) 28.5 SEC (24.3-30.1); INTERNATIONAL NORMALIZED RATIO 1.7 RATIO; PROTHROMBIN TIME - PATIENT 19.7 SEC (9.8-11.6)
[2016-06-02 13:34] VITALS: O2SAT 97
[2016-06-02 13:36] LABS: BICARBONATE 29.4 MEQ/L (21.0-32.0)
--- NOTE | 2016-06-02 14:07 | RADRPT ---
EXAM DATE/TIME: 06/02/2016 13:18 [facility] COMPARISON: CT NEEDLE BIOPSY LIVER, March 19, 2015, 9:14. INDICATIONS : Pain, patient found non responsive MEDICAL HISTORY : Unobtainable SURGICAL HISTORY : Unobtainable ENCOUNTER: Initial ACUITY: 1 day PAIN SCORE: Non-responsive. LOCATION: Right Hip and Pelvis FINDINGS: Examination of the right hip was performed with AP Pelvis. Mild degenerative changes of the right hip . There is a displaced fracture of the proximal shaft of the femur with slight overlap of fragments. There is some lucency around the fracture site with irregular cortex. The acetabulum is grossly inta ct. CONCLUSION: Fracture of the proximal shaft of the femur. Underlying pathologic fracture cannot be excluded. Giovanny Lima MD on June 02, 2016 at 14:03 Board Certified Radiologist. This report was verified electronically.
[2016-06-02 14:17] LABS: BACTERIA, URINE RARE /hpf; BLOOD, URINE NEG (NEG); GLUCOSE,URINE NEG (NEG); GRANULAR CAST, URINE 1 /lpf; HYALINE CAST, URINE 10 /lpf (RARE); KETONE, URINE NEG (NEG); MUCUS URINE FEW /lpf (OCC); NITRITE,URINE NEG (NEG); SQUAMOUS EPITHELIAL CELL URINE <1 /hpf (0-5); URINE COLOR YELLOW (YELLW/STRAW)
[2016-06-02 14:18] LABS: COMMENT (UR) CULT NOT INDICATED; CULTURE IF INDICATED CULT NOT INDICATED
--- NOTE | 2016-06-02 14:18 | RADRPT ---
EXAM DATE/TIME: 06/02/2016 13:18 [facility] COMPARISON: CHEST SINGLE AP, March 19, 2015, 10:23. INDICATIONS : Trauma Fall. Patient found non responsive MEDICAL HISTORY : Unobtainable SURGICAL HISTORY : Unobtainable ENCOUNTER: Initial ACUITY: 1 day PAIN SCORE: Non-responsive. LOCATION: Bilateral chest FINDINGS: The heart size is normal. There is increased focal density in the right upper lung. There is some pro minence of the right hilar region. Patient is rotated towards the right. A significant effusion is no t seen. The bony structures appear intact. CONCLUSION: Possible focal consolidation or mass in the right upper lobe. Fortino Martell MD on June 02, 2016 at 14:15 Board Certified Radiologist. This report was verified electronically.
[2016-06-02] MEDS ORDERED: SODIUM CHLOR 0.9% 1000 ML INJ 1,000 ML IV ONE (15:30)
[2016-06-02] MEDS ORDERED: THERTAB17 PO (17:37)
[2016-06-02] MEDS ORDERED: TRAM50TA PO (17:39)
[2016-06-02] MEDS ORDERED: NYST1000 SWISH-SWAL (17:41)
[2016-06-02] MEDS ORDERED: SODIUM CHLOR 0.9% 1000 ML INJ 1,000 ML IV SCH (17:42)
[2016-06-02] MEDS ORDERED: ACETAMINOPHEN 325 MG TAB PO PRN ×2 (17:45)
[2016-06-02] MEDS ORDERED: SODIUM CHLORIDE 0.9% FLUSH 5 ML FLUSH FLUSH PRN (17:45)
[2016-06-02] MEDS ORDERED: BISACODYL 10 MG SUPP PR PRN (17:45)
[2016-06-02] MEDS ORDERED: ONDANSETRON HCL 4 MG/2 ML VIAL IVP PRN (17:45)
[2016-06-02] MEDS ORDERED: NALOXONE HCL 0.4 MG/ML AMP IV PRN (17:45)
[2016-06-02] MEDS ORDERED: MORPHINE SULFATE 4 MG/ML INJ IV PRN ×2 (17:45)
[2016-06-02] MEDS ORDERED: SENNOSIDES 8.6 MG TAB PO PRN (17:45)
[2016-06-02] MEDS ORDERED: PIPERACIL-TAZO 4.5 GM PREMIX 100 ML IV SCH (18:00)
[2016-06-02] MEDS ORDERED: DEXTROSE 5% IN WATE 1000ML INJ 1,000 ML IV SCH (18:00)
[2016-06-02] MEDS ORDERED: DOCUSATE SODIUM 100 MG CAP PO SCH (18:00)
--- NOTE | 2016-06-02 18:01 | HHI.HP ---
[facility] Unknown Admission Diagnosis fracture right femur Diagnoses: Chief Complaint: Fracture Travel History International Travel<30 Days: No Contact w/Intl Traveler <30 Da: No Traveled to Known Affected Are: No History of Present Illness The patient is an 81-year-old male who was recently admitted to the hospital for altered mental status who is presenting to the hospital with right hip pain from his long term. The patient is currently unable to give a history because he is nonverbal at the moment. I did call the patient's son who explained that the patient had a fall a few weeks ago and since then he has had pain on that right lower extremity. Apparently the patient had a lot of pain this morning and there was swelling and redness around his right lower extremity so he was brought to the hospital where a fracture was identified. The patient's son states that the family feels like they wouldn't want the patient to have surgery as they don't believe he is strong enough and they have noticed that the patient has been declining recently. As mentioned the patient was recently hospitalized for altered mental status and his mental status has not been getting any better since that hospitalization. He has not been able to ambulate well. He has not really been talking. In the emergency department the patient would open his eyes but would not communicate. He did seem to respond to painful stimuli. Chest x-ray did demonstrate possible consolidation. 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 Chronic kidney disease Hepatic cirrhosis, history of alcoholism Hyperlipidemia Hypertension Dyspepsia Cataracts Liver biopsy Allergies: Coded Allergies: No Known Allergies (Verified , 03/18/14) Active Ordered Medications Current Medications Medications (Trade) Dose Ordered Sig/Mitzy Route Start Time Stop Time Status Last Admin (NS Flush) 2 ml UNSCH PRN FLUSH 06/02/16 17:45 UNV (NS Flush) 2 ml BID FLUSH 06/02/16 21:00 UNV (Tylenol) 650 mg Q4H PRN PO 06/02/16 17:45 UNV (Zofran Inj) 4 mg Q6H PRN IVP 06/02/16 17:45 UNV (Dulcolax Supp) 10 mg DAILY PRN WV 06/02/16 17:45 UNV (Colace) 100 mg Q12H PO 06/02/16 17:45 UNV (Senokot) 17.2 mg Q12H PRN PO 06/02/16 17:45 UNV (Tylenol) 650 mg Q6H PRN PO 06/02/16 17:45 UNV (Morphine Inj) 2 mg Q3H PRN IV 06/02/16 17:45 UNV (Morphine Inj) 4 mg Q3H PRN IV 06/02/16 17:45 UNV Naloxone HCl 0.4 mg 0.4 mg UNSCH PRN IV 06/02/16 17:45 UNV (D5W 1000 ml Inj) 1,000 ml @ 100 mls/hr Q10H IV 06/02/16 18:00 UNV Family History Unable to obtain at this time. Social History Unable to obtain at this time. Physical Exam Vital Signs Vital Signs Date Time Temp Pulse Resp B/P Pulse Ox O2 Delivery O2 Flow Rate FiO2 06/02/16 13:34 97 06/02/16 11:37 97.6 90 20 97/61 96 Physical Exam GENERAL: Well-nourished, well-developed patient, unresponsive. SKIN: Warm and dry. HEAD: Normocephalic. EYES: No scleral icterus. No injection or drainage. NECK: Supple, trachea midline. No JVD or lymphadenopathy. CARDIOVASCULAR: Regular rate and rhythm without murmurs, gallops, or rubs. RESPIRATORY: Breath sounds equal bilaterally. No accessory muscle use. GASTROINTESTINAL: Abdomen soft, non-tender, nondistended. MUSCULOSKELETAL: No cyanosis, or edema. BACK: Nontender without obvious deformity. No CVA tenderness. NEURO: Responded to painful stimuli. Unable to move lower extremity. Uncooperative with exam. Laboratory Laboratory Tests Test 06/02/16 06/02/16 12:15 14:00 White Blood Count 14.8 Red Blood Count 4.47 Hemoglobin 13.7 Hematocrit 42.6 Mean Corpuscular Volume 95.3 Mean Corpuscular Hemoglobin 30.7 Mean Corpuscular Hemoglobin 32.2 Concent Red Cell Distribution Width 16.6 Platelet Count 106 Mean Platelet Volume 13.1 Neutrophils (%) (Auto) 88.5 Lymphocytes (%) (Auto) 3.6 Monocytes (%) (Auto) 6.9 Eosinophils (%) (Auto) 0.0 Basophils (%) (Auto) 1.0 Neutrophils # (Auto) 13.1 Lymphocytes # (Auto) 0.5 Monocytes # (Auto) 1.0 Eosinophils # (Auto) 0.0 Basophils # (Auto) 0.1 CBC Comment DIFF FINAL Differential Comment Prothrombin Time 19.7 Prothromb Time International 1.7 Ratio Activated Partial 28.5 Thromboplast Time Sodium Level 154 Potassium Level 4.0 Chloride Level 114 Carbon Dioxide Level 29.4 Anion Gap 11 Blood Urea Nitrogen 76 Creatinine 1.77 Estimat Glomerular Filtration 37 Rate Random Glucose 71 Calcium Level 12.3 Protein Corrected Calcium Total Bilirubin 3.0 Aspartate Amino Transf 269 (AST/SGOT) Alanine Aminotransferase 72 (ALT/SGPT) Alkaline Phosphatase 250 Total Protein 5.9 Albumin 2.6 Urine Color YELLOW Urine Turbidity HAZY Urine pH 5.0 Urine Specific [place] 1.017 Urine Protein TRACE Urine Glucose (UA) NEG Urine Ketones NEG Urine Occult Blood NEG Urine Nitrite NEG Urine Bilirubin NEG Urine Urobilinogen 4.0 Urine Leukocyte Esterase NEG Urine RBC 3 Urine WBC 1 Urine Squamous Epithelial <1 Cells Urine Bacteria RARE Urine Hyaline Casts 10 Urine Granular Casts 1 Urine Mucus FEW Microscopic Urinalysis Comment CULT NOT INDICATED Result Diagram: 06/02/16 1215 06/02/16 1215 Imaging Last Impressions Chest X-Ray 06/02/16 1228 Signed Impressions: Service Date/Time: Thursday, June 02, 2016 13:18 - CONCLUSION: Possible focal consolidation or mass in the right upper lobe. Fortino Martell MD Hip and Pelvis X-Ray 06/02/16 1224 Signed Impressions: Service Date/Time: Thursday, June 02, 2016 13:18 - CONCLUSION: Fracture of the proximal shaft of the femur. Underlying pathologic fracture cannot be excluded. Giovanny Lima MD Assessment and Plan Assessment and Plan Right femur fracture The pt had a fall prior to his last admission and has had right sided leg pain since then. Imaging shows a fracture. Family hesitant to pursue history and are interested in hospice. - case management and hospice consults placed. - ortho consult if family changes mind on surgery. - pain control with a bowel regimen. - bed rest. Acute metabolic encephalopathy Probably secondary to hypercalcemia, hypernatremia and dementia. Worked up by neuro on recent admit. EEG, brain MRI negative and LP unremarkable at that time. - speech therapy eval. Keep the pt NPO for now with IVFs. - hospice consult pending. - neuro checks. Acute hypercalcemia/ Hypernatremia Likely secondary to dehydration and underlying cancer. - D5W. - follow BMP. HCAP CXR with consolidation. Possibly aspiration PNA. - start vancomycin and Zosyn. - oxygen and nebs as needed. Sarcoma of the liver Followed at [facility]. AST is elevated. - outpt follow-up. - hospice consult Myelodysplastic syndrome With chronic thrombocytopenia. - follow CBC. Cirrhosis of the liver Secondary to history of alcoholism. Currently compensated. - clinically monitor. Hypertension Blood pressure running low. - Hold home blood pressure meds. - IVFs. Acute on chronic kidney disease Creatinine is elevated, likely prerenal. - IVFs. - follow BMP and avoid nephrotoxic agents. DVT prophylaxis with SCDs. Code Status DNR. Discussed Condition With Pt's Dr. Bo Barker, nurse. Physician Certification 2 Midnight Certification Type: Admission for Inpatient Services Order for Inpatient Services The services are ordered in accordance with Medicare regulations or non- Medicare payer requirements, as applicable. In the case of services not specified as inpatient-only, they are appropriately provided as inpatient services in accordance with the 2-midnight benchmark. Estimated LOS (days): 2 days is the estimated time the patient will need to remain in the hospital, assuming treatment plan goals are met and no additional complications. Post-Hospital Plan: Not yet determined Kenny Torres DO Jun 02, 2016 18:01
[2016-06-02] MEDS ORDERED: VANCOMYCIN INJ 1,000 MG in SODIUM CHLOR 0.9% 250 ML INJ 250 ML IV SCH (18:15)
[2016-06-02] MEDS ORDERED: Vancomycin Consult Pharmacy 1 EA OTHER SCH (18:15)
[2016-06-02] MEDS ORDERED: VANCOMYCIN 1,500 MG/NS 500 ML IV ONE ×2 (18:30)
[2016-06-02 18:39] VITALS: BP 102/59; PULSE 83; RESP 20; O2SAT 98
--- NOTE | 2016-06-02 19:16 | MB ---
cc: NANI CHAIDEZ M.D. DATE OF CONSULTATION: 06/02/2016 REASON FOR CONSULTATION Right femur fracture. HISTORY The patient is an 81-year-old man who has a history of metastatic liver cancer, hypertension, dyslipidemia, confusion and weakness who apparently had injury somewhat recently about the right femur which was superimposed upon some other medical conditions for which he ended up in a rehab facility and recent admission to the hospital. Apparently the patient was able to take at least some steps very recently and then today there was some information that he injured himself and was not able to ambulate. EMS was called. I do not have very good details on the actual accident. There is not specific information in the chart to say what happened and also I contacted the patient's son, Giovanny Leon, who does not known the exact details, but since then he was found to have a deformity of the femur and was brought to [facility], he was found to have a displaced fracture. The patient cannot participate in any history taking; I do not know if he has any numbness or tingling. The patient said that they talked to one of their physicians who was very concerned that if he underwent surgical management there was a significant likelihood that he would not "make it out of surgery". PAST MEDICAL HISTORY Medical history is positive for - 1. Liver metastasis. 2. High cholesterol. 3. Cirrhosis. 4. Genitourinary disease. 5. Previous alcoholism. PAST SURGICAL HISTORY 1. Liver biopsy. 2. Cataract surgery. SOCIAL HISTORY The patient does not drink alcohol, does not smoke tobacco. ALLERGIES NO KNOWN DRUG ALLERGIES. MEDICATIONS See the chart. TWELVE-POINT REVIEW OF SYSTEMS I cannot obtain an accurate review of systems due to significant altered mental status. PHYSICAL EXAMINATION VITAL SIGNS: Temperature is 97.6, pulse is 90, respirations 20, blood pressure is 97/61. GENERAL: The patient is fairly well-obtunded, does not appear to be in significant distress. HEENT: His eyes are open but I cannot get him to track motion with the eyes. Head is atraumatic. NECK: Appears to be supple. UPPER EXTREMITIES: Upper extremities have fairly limited range of motion of the shoulders, elbows and wrists but no obvious sign of pain with palpation. LUNGS: Clear to auscultation bilaterally. ABDOMEN: Soft, nontender, nondistended. HEART: Regular, rate and rhythm. BACK: Shows no CVA tenderness. LOWER EXTREMITIES: The right leg shows significant deformity about the proximal femur. No wound was noted of the anterior thigh. He does not actually move the toes on either foot. He did not follow commands. He does have brisk capillary refill about the toes on both feet. The left knee has no swelling. IMAGING The report and the images show a proximal fracture of the proximal third of the femoral shaft. LABORATORY STUDIES White cell count of 14.8, hematocrit is 42.6, platelets of 106. Coagulations: INR is 1.7. Calcium is significantly high at 12.3, creatinine is 1.77. Urine culture not indicated. IMPRESSION 1. History of metastatic liver cancer with history of alcoholism. 2. Significant mental status changes. 3. Renal insufficiency. 4. Right femur proximal third shaft fracture displaced and angulated. MEDICAL DECISION-MAKING I contacted the patient's son Giovanny on the phone. We discussed the clinical situation in detail. We discussed both operative and nonoperative management options for this fracture. The patient understands that operative management of this fracture will likely lead to severe dysfunction of the right leg. The patient may not be able to be mobilized out of bed for multiple weeks up to several months due to pain which leaves a significant chance of developing DVT, bed sores, pneumonia, pulmonary embolus and . They also understand that surgical management does have significant risks such as need for prolonged intubation, risk from the surgery such as bleeding, infection, again blood clots, medical complications such as heart attack, stroke and . They understand though without surgical management this may very well be the beginning of a series of medical problems that does lead towards for the patient. The patient's son is fully aware of all of these situations and I explained them in detail and answered all of his questions. The patient's son would like to talk to his sister so they can make a decision if they want to move forward with surgical management versus just Hospice care, and I told them that we would be available to manage the patient surgically if they do desire to move forward with surgery and he does get medically cleared. All questions have been answered. MD FRANCOISE Lombardi/ANETTE /5:58 PM /6:42 PM
[2016-06-02 19:17] VITALS: BP 111/61; PULSE 79; RESP 18; TEMP 98.4; O2SAT 97
--- NOTE | 2016-06-02 19:57 | HHI.DCPOC ---
Discharge Care Plan Diagnosis: (1) Hypercalcemia (2) Elevated LFTs (3) Fracture of right femur (4) Acute prerenal azotemia (5) CKD (chronic kidney disease) stage 2, GFR 60-89 ml/min (6) Metabolic encephalopathy (7) MDS (myelodysplastic syndrome) (8) Confusion Goals to Promote Your Health * To prevent worsening of your condition and complications * To maintain your health at the optimal level Directions to Meet Your Goals Take your medications as prescribed Follow your dietary instruction Follow activity as directed Keep your appointments as scheduled Take your immunizations and boosters as scheduled If your symptoms worsen call your PCP, if no PCP go to Urgent Care Center or Emergency Room Smoking is Dangerous to Your Health. Avoid second hand smoke Call the 24-hour hour crisis hotline for domestic abuse at Kenny Torres DO Jun 02, 2016 19:57
[2016-06-02] MEDS ORDERED: SODIUM CHLORIDE 0.9% FLUSH 5 ML FLUSH FLUSH SCH (21:00)
[2016-06-02 22:08] VITALS: BP 105/58; PULSE 79; RESP 18; O2SAT 95
[2016-06-02 23:03] VITALS: BP 123/63
--- NOTE | 2016-06-03 20:34 | EKG ---
Date Performed: 06/02/2016 Time Performed: 09:44:16 PTAGE: 81 years EKG: Sinus rhythm WITH OCCASIONAL SUPRAVENTRICULAR PREMATURE COMPLEXES MARKED LEFT AXIS DEVIATION NONSPECIFIC ST & [address] ABNORMALITY ABNORMAL ECG PREVIOUS TRACING : 05/17/2016 17.56 Compared to prior tracing no significant change DOCTOR: Cesar Bernard Interpretating Date/Time 06/03/2016 20:33:53
== END 2016-06-02 23:07 | disposition hospice, inpatient (51) | DRG 533 ==
LOC: NEPA 11:31 → NEDA 16:48
PROVIDERS: ADMIT Hospitalist; ATTEND Hospitalist
DX: S72.391A Other fracture of shaft of right femur, initial encounter for closed fracture (principal); G93.41 Metabolic encephalopathy; N17.9 Acute kidney failure, unspecified; E87.0 Hyperosmolality and hypernatremia; C78.7 Secondary malignant neoplasm of liver and intrahepatic bile duct; K70.30 Alcoholic cirrhosis of liver without ascites; E86.0 Dehydration; D46.9 Myelodysplastic syndrome, unspecified; E83.52 Hypercalcemia; E78.5 Hyperlipidemia, unspecified; F10.21 Alcohol dependence, in remission; Z66 Do not resuscitate; W18.30XA Fall on same level, unspecified, initial encounter; Y92.89 Other specified places as the place of occurrence of the external cause; Z51.5 Encounter for palliative care; I12.9 Hypertensive chronic kidney disease with stage 1 through stage 4 chronic kidney disease, or unspecified chronic kidney disease; N18.9 Chronic kidney disease, unspecified
CPT/HCPCS: 71010; 73502; 80053; 81001; 85025; 85610; 85730; 93005; 96360; J3370; J7030; J7040